=== PATIENT | male | born 1945 | race Caucasian/White ===

== ENCOUNTER 2018-07-14 09:56 | Emergency (ER) | payer OTHER, BC ==
--- OUTSIDE RECORDS SUMMARY | 2018-07-14 10:00 | XMS REPORT | Clinical Summary ---
:1945 Author Organization [facility] Address [address] [place] [address] Care Team Providers Name Role Phone Shyam Ford MD Primary Care Provider Unavailable Allergies No Known Allergies Current Medications Prescription Sig. Disp. Refills Start End Date Status Date amIODarone Active (PACERONE) 200 MG 6 tablet cetirizine Take 10 mg by 11 Active (ZyrTEC) 10 MG mouth once daily. 6 tablet VITAMIN D2 50,000 TAKE ONE CAPSULE 5 Active unit capsule BY MOUTH TWICE PER 6 WEEK. XARELTO tablet Take 20 mg by 3 Active mouth once daily. 6 tamsulosin Take 0.4 mg by 2 Active (FLOMAX) 0.4 mg mouth nightly. 6 capsule,extended release 24hr aspirin (ECOTRIN) Take 81 mg by Active 81 MG enteric mouth daily. coated tablet metoprolol Take 1 tablet (50 90 tablet 3 11/01/19 Active succinate XL mg total) by mouth 8 19 (TOPROL-XL) 50 mg daily. 24 hr tablet pen needle, Use one needle 100 each 3 Active diabetic (BD with syringe twice 8 ULTRA-FINE GAMAL daily for insulin PEN NEEDLES) 32 administration gauge x 5/32" needleIndications: Type 2 diabetes mellitus with hyperglycemia, with long-term current use of insulin insulin GLARGINE Inject 30 Units 3 mL 12/08/19 Active (BASAGLAR KWIKPEN under the skin 8 19 U-100 INSULIN) 100 nightly. unit/mL injection (pen) fenofibrate Take 1 tablet (145 90 tablet 1 Active (TRICOR) 145 MG mg total) by mouth 8 tablet daily. atorvastatin Take 1 tablet (80 90 tablet 1 Active (LIPITOR) 80 MG mg total) by mouth 8 tablet daily. traMADol (ULTRAM) Take 1 tablet (50 40 tablet 0 05/16/20 Active 50 mg tablet mg total) by mouth 8 19 every 6 (six) hours as needed for moderate pain. for pain levothyroxine Take 1 tablet (75 30 tablet 5 Active (SYNTHROID, mcg total) by 8 LEVOXYL) 75 mcg mouth every tabletIndications: morning. Primary hypothyroidism blood sugar Inject 1 strip 100 strip 5 Active diagnostic strips under the skin 3 8 (ONETOUCH ULTRA (three) times a BLUE TEST STRIP) day. strip test stripsIndications: Type 2 diabetes mellitus with hyperglycemia, with long-term current use of insulin glimepiride Take 0.5 tablets 180 tablet 1 Active (AMARYL) 4 MG (2 mg total) by 8 tablet mouth daily before breakfast. TAKE 1 TABLET BY MOUTH 2 TIMES A DAY sitaGLIPtin Take 1 tablet (100 30 tablet 5 12/03/19 Active (JANUVIA) 100 MG mg total) by mouth 8 19 tablet daily for 180 days. amlodipine-valsart Take 1 tablet by 90 tablet 1 Active an (EXFORGE) mouth daily. 8 10-160 mg per tabletIndications: Essential hypertension colchicine 0.6 mg Take 0.5 tablets 30 tablet 0 07/27/20 Active tablet (0.3 mg total) by 8 18 mouth 2 (two) times a day for 30 days. sucralfate Take 1 tablet (1 g 120 tablet 0 07/27/20 Active (CARAFATE) 1 gram total) by mouth 4 8 18 tablet (four) times a day before meals and nightly for 30 days. DEXILANT 60 mg Take 1 capsule (60 60 capsule 2 07/27/20 Active capsule mg total) by mouth 8 18 2 (two) times a day for 30 days. omega-3 acid ethyl Take 2 capsules (2 120 capsule 5 07/05/20 Active esters (LOVAZA) 1 g total) by mouth 8 19 gram capsule 2 (two) times a day. DEXILANT 60 mg 06/27/20 Discontinued capsule 6 18 BREO ELLIPTA 06/26/20 Discontinued 100-25 mcg/dose 6 18 blister with device metoprolol 11/01/19 Discontinued succinate XL 6 18 (TOPROL-XL) 25 MG 24 hr tablet albuterol (PROAIR INHALE 2 PUFFS 06/26/20 Discontinued HFA) 90 EVERY 4-6 HOURS 18 mcg/actuation NEEDED inhaler meclizine meclizine 25 mg 06/26/20 Discontinued (ANTIVERT) 25 mg tablet 18 tablet blood sugar TEST BLOOD SUGAR 3 04/23/20 Discontinued diagnostic strips TIMES PER DAY 18 (EasyCopayTOUCH ULTRA TEST) strip test strips fenofibrate Take 1 tablet (145 90 tablet 3 09/30/20 Discontinued (TRICOR) 145 MG mg total) by mouth 6 17 tablet once daily for 90 days. NASONEX 50 06/26/20 Discontinued mcg/actuation 7 18 nasal spray LANTUS SOLOSTAR Inject 20 Units 3 pen 3 11/30/19 Discontinued 100 unit/mL under the skin 7 18 injection (pen) nightly. JANUVIA 100 mg Take 1 tablet (100 30 tablet 3 07/31/20 Discontinued tablet mg total) by mouth 7 17 daily. atorvastatin Take 80 mg by 10/06/20 Discontinued (LIPITOR) 80 MG mouth daily. 17 tablet levothyroxine Take 1 tablet (50 09/30/20 Discontinued (SYNTHROID, mcg total) by 7 17 LEVOXYL) 50 mcg mouth daily. tablet fenofibrate TAKE 1 TABLET (145 3 09/30/20 Discontinued (TRICOR) 145 MG MG TOTAL) BY MOUTH 7 17 tablet ONCE DAILY FOR 90 DAYS. glimepiride TAKE 1 TABLET BY 60 tablet 5 10/06/20 Discontinued (AMARYL) 4 MG MOUTH 2 TIMES A 7 17 tablet DAY amlodipine-valsart TAKE 1 TABLET BY 90 tablet 3 06/13/20 Discontinued an (EXFORGE) MOUTH EVERY DAY 7 18 10-160 mg per tabletIndications: Essential hypertension sitaGLIPtin Take 1 tablet (100 30 tablet 3 12/06/19 Discontinued (JANUVIA) 100 MG mg total) by mouth 7 18 tablet daily. levothyroxine Take 1 tablet (50 30 tablet 5 10/06/20 Discontinued (SYNTHROID, mcg total) by 7 17 LEVOXYL) 50 mcg mouth every tabletIndications: morning. Primary hypothyroidism fenofibrate Take 1 tablet (145 90 tablet 1 03/15/20 Discontinued (TRICOR) 145 MG mg total) by mouth 7 18 tablet daily. atorvastatin Take 1 tablet (80 90 tablet 1 04/23/20 Discontinued (LIPITOR) 80 MG mg total) by mouth 7 18 tablet daily. glimepiride TAKE 1 TABLET BY 180 tablet 1 05/05/20 Discontinued (AMARYL) 4 MG MOUTH 2 TIMES A 7 18 tablet DAY levothyroxine Take 1 tablet (50 90 tablet 1 11/30/19 Discontinued (SYNTHROID, mcg total) by 7 18 LEVOXYL) 50 mcg mouth every tabletIndications: morning. Primary hypothyroidism levothyroxine Take 1 tablet (75 30 tablet 5 11/30/19 Discontinued (SYNTHROID, mcg total) by 8 18 LEVOXYL) 75 mcg mouth every tabletIndications: morning. Primary hypothyroidism levothyroxine Take 1 tablet (75 30 tablet 5 11/30/19 Discontinued (SYNTHROID, mcg total) by 8 18 LEVOXYL) 75 mcg mouth every tabletIndications: morning. Primary hypothyroidism insulin GLARGINE Inject 20 Units 6 pen 3 12/07/19 Discontinued (LANTUS SOLOSTAR) under the skin 8 18 100 unit/mL nightly. injection (pen)Indications: Type 2 diabetes mellitus with hyperglycemia, with long-term current use of insulin levothyroxine Take 1 tablet (75 30 tablet 5 11/30/19 Discontinued (SYNTHROID, mcg total) by 8 18 LEVOXYL) 75 mcg mouth every tabletIndications: morning. Primary hypothyroidism levothyroxine Take 1 tablet (75 30 tablet 5 02/25/20 Discontinued (SYNTHROID, mcg total) by 8 18 LEVOXYL) 75 mcg mouth every tabletIndications: morning. Primary hypothyroidism sitaGLIPtin Take 1 tablet (100 30 tablet 3 06/06/20 Discontinued (JANUVIA) 100 MG mg total) by mouth 8 18 tablet daily. insulin GLARGINE Inject 30 Units 3 mL 11 12/08/19 Discontinued (BASAGLAR KWIKPEN under the skin 8 18 U-100 INSULIN) 100 nightly. unit/mL injection (pen) sitaGLIPtin Take 1 tablet (100 30 tablet 5 06/26/20 Discontinued (JANUVIA) 100 MG mg total) by mouth 8 18 tablet daily. omega-3 acid ethyl Take 2 capsules (2 120 capsule 11 07/05/20 Discontinued esters (LOVAZA) 1 g total) by mouth 8 18 gram capsule 2 (two) times a day. levothyroxine Take 1.5 tablets 30 tablet 5 05/22/20 Discontinued (SYNTHROID, (75 mcg total) by 8 18 LEVOXYL) 50 mcg mouth every tabletIndications: morning. Primary hypothyroidism traMADol (ULTRAM) Take 1 tablet (50 40 tablet 0 05/16/20 Discontinued 50 mg tablet mg total) by mouth 8 18 every 6 (six) hours as needed for moderate pain for up to 30 days. ONETOUCH ULTRA USE 1 TEST STRIP 3 100 strip 5 05/24/20 Discontinued BLUE TEST STRIP TIMES DAILY. 8 18 strip test strips glimepiride Take 1 tablet (4 180 tablet 1 05/29/20 Discontinued (AMARYL) 4 MG mg total) by mouth 8 18 tablet daily before breakfast. TAKE 1 TABLET BY MOUTH 2 TIMES A DAY Active Problems Problem Noted Date PAF (paroxysmal atrial fibrillation) 06/26/2018 Memory difficulties 05/24/2018 BPH with urinary obstruction 02/22/2018 Acute pain of left knee 11/14/2017 Acquired hammer toe of right foot 11/14/2017 Left hip pain 12/06/2016 Coronary artery disease involving [place] heart without angina pectoris 2016 Atrial fibrillation 11/02/2016 SOB (shortness of breath) 11/02/2016 Hypertension, essential 09/29/2016 Type 2 diabetes mellitus with hyperglycemia 06/30/2016 Acquired hypothyroidism 06/30/2016 Encounters Date Type Specialty Care Team Description 07/05/2018 Refill Sports Randolph Wu MA 06/27/2018 Procedure Pass Cardiovascular 06/26/2018 - Hospital Encounter Cardiovascular DillonJa PAF (paroxysmal 06/30/2018 MD John atrial fibrillation) 06/26/2018 Anesthesia Event Procedural Cardiology Claude Goncalves 06/26/2018 Procedure Pass Procedural Cardiology 06/26/2018 Surgery Procedural Cardiology Ja Carranza Ep complete ep study MD John w ablation pulmonary vein [56953 (CPT)] 06/13/2018 Refill Sports Medicine Braunreiter, Essential Shyam Dubose MD hypertension 06/06/2018 Refill Sports Shyam Osborn MD 05/29/2018 Orders Only Sports Shyam Osborn MD 05/24/2018 Office Visit Sports Medicine [place], Type 2 diabetes mellitus with hyperglycemia, with long-term current use of insulin (Primary Dx); Shyam Dubose MD Hypertension, essential; Memory difficulties 05/21/2018 Refill Sports Medicine Arias Ford MD hypothyroidism 05/16/2018 Refill Sports Shyam Osborn MD 05/05/2018 Refill Sports Shyam Osborn MD 04/23/2018 Refill Sports Shyam Osborn MD 03/15/2018 Orders Only Sports Medicine [place], Left hip pain Shyam Dubose MD (Primary Dx) 03/15/2018 Telephone Sports Shyam Osborn MD 02/28/2018 Telephone Sports Medicine Albertina Gallo MA 02/24/2018 Orders Only Sports Medicine [place] Primary Shyam Dubose MD hypothyroidism 02/23/2018 Refill Sports Shyam Osborn MD 02/22/2018 Office Visit Sports Medicine [place], Hypertension, essential (Primary Dx); Shyam Dubose MD Type 2 diabetes mellitus with hyperglycemia, with long- term current use of insulin; BPH with urinary obstruction; Acquired hypothyroidism 12/08/2017 Refill Sports Randolph Wu MA 12/07/2017 Orders Only Sports Shyam Osborn MD 12/06/2017 Refill Sports Medicine Shyam Ford MD 11/30/2017 Office Visit Sports Medicine [place], Hypertension, essential (Primary Dx); Shyam Dubose MD Type 2 diabetes mellitus with hyperglycemia, with long- term current use of insulin; Acute pain of left knee; Hypercholesterolemia; Primary hypothyroidism 11/16/2017 Telephone Sports Medicine Albertina Gallo MA 11/14/2017 Office Visit Sports Medicine [place], Acute pain of left knee (Primary Dx); Shyam Dubose MD Acquired hammer toe of right foot; Type 2 diabetes mellitus with hyperglycemia, with long-term current use of insulin; Hypertension, essential; Acquired hypothyroidism; Coronary artery disease involving [place] coronary artery of [place] heart without angina pectoris 11/01/2017 Office Visit Cardiology Rojas Ramirez Atrial fibrillation, unspecified type (Primary Dx); MD Astrid Hypertension, essential 10/06/2017 Refill Sports Medicine Arias Sparks MA hypothyroidism 09/30/2017 Refill Sports Medicine Arias Ford MD hypothyroidism 07/31/2017 Refill Sports Medicine Shyam Ford MD after 07/13/2017 Immunizations Name Dates Previously Given Next Due FLUZONE HIGH-DOSE PF 05/26/2018 Pneumococcal Conjugate 13-Valent 05/10/2017 Family History Medical History Relation Name Comments Cancer Father Cancer Mother Relation Name Status Comments Brother Father Mother Social History Tobacco Use Types Packs/Day Years Used Date Never Smoker Smokeless Tobacco: Never Used Alcohol Use Drinks/Week oz/Week Comments No Sex Assigned at Date Recorded Not on file Last Filed Vital Signs Vital Sign Reading Time Taken Blood Pressure 159/74 06/30/2018 7:09 AM CDT Pulse 58 06/30/2018 8:10 AM CDT Temperature 36.5 C (97.7 F) 06/30/2018 7:09 AM CDT Respiratory Rate 18 06/30/2018 7:09 AM CDT Oxygen Saturation 94% 06/30/2018 7:09 AM CDT Inhaled Oxygen Concentration - - Weight 119 kg (262 lb 14.4 oz) 06/30/2018 5:06 AM CDT Height 170.2 cm (5' 7") 06/26/2018 11:45 PM CDT Body Mass Index 41.18 06/30/2018 5:06 AM CDT Plan of Treatment Date Type Specialty Care Team Description 09/06/2018 Office Visit [place] [address] [place] [address] [phone] Health Maintenance Due Date Last Done Comments DIABETIC FOOT EXAM 1957 DIABETIC RETINAL EYE EXAM 1957 URINE MICROALBUMIN 1957 COLON CANCER SCREENING 1997 SHINGRIX VACCINE (#1) 1997 ZOSTER VACCINE 2007 PNEUMOCOCCAL POLYSACCHARIDE VACCINE AGE 65 AND OVER 2012 PNEUMOCOCCAL-13 Completed 05/10/2017 INFLUENZA VACCINE Completed 05/26/2018 Implants Implanted Type Area Chronic Disease Manager Device Expiration Model / Identifier Date Serial / Lot System Reveal Linq W/Monitors - [id number] Cardiac N/A: [employer] 2018 LINQSYS / Implanted: 06/26/2018 (Quantity not on file) Pacemakers and N/A CARDIAC RHYTHM / Related DISEASE MGMT [id number] Products Procedures Procedure Name Priority Date/Time Associated Comments Diagnosis POC GLUCOSE Routine 06/30/2018 7:09 Results for this AM CDT procedure are in the results section. POC GLUCOSE Routine 06/29/2018 8:43 Results for this PM CDT procedure are in the results section. POC GLUCOSE Routine 06/29/2018 4:22 Results for this PM CDT procedure are in the results section. POC GLUCOSE Routine 06/29/2018 12:06 Results for this PM CDT procedure are in the results section. POC GLUCOSE Routine 06/29/2018 7:21 Results for this AM CDT procedure are in the results section. POC GLUCOSE Routine 06/28/2018 9:04 Results for this PM CDT procedure are in the results section. POC GLUCOSE Routine 06/28/2018 6:21 Results for this PM CDT procedure are in the results section. MRI BRAIN WO CONTRAST Routine 06/28/2018 4:23 Results for this PM CDT procedure are in the results section. XR CHEST 1 VW Routine 06/28/2018 12:17 Results for this PORTABLE PM CDT procedure are in the results section. POC GLUCOSE Routine 06/28/2018 11:38 Results for this AM CDT procedure are in the results section. POC GLUCOSE Routine 06/28/2018 7:11 Results for this AM CDT procedure are in the results section. POC GLUCOSE Routine 06/27/2018 9:48 Results for this PM CDT procedure are in the results section. POC GLUCOSE Routine 06/27/2018 11:20 Results for this AM CDT procedure are in the results section. POC GLUCOSE Routine 06/27/2018 9:32 Results for this AM CDT procedure are in the results section. ECG 12-LEAD Routine 06/27/2018 9:29 Results for this AM CDT procedure are in the results section. POC GLUCOSE Routine 06/27/2018 7:30 Results for this AM CDT procedure are in the results section. PROTHROMBIN TIME WITH Routine 06/27/2018 5:15 Results for this INR AM CDT procedure are in the results section. HC COMPLETE BLD COUNT Routine 06/27/2018 5:15 Results for this W/AUTO DIFF AM CDT procedure are in the results section. ZZESTIMATED GFR Routine 06/27/2018 4:00 Results for this AM CDT procedure are in the results section. BASIC METABOLIC PANEL Routine 06/27/2018 4:00 Results for this AM CDT procedure are in the results section. POC GLUCOSE Routine 06/26/2018 9:38 Results for this PM CDT procedure are in the results section. EP COMPLETE EP STUDY Routine 06/26/2018 5:51 PAF (paroxysmal Results for this W ABLATION VT PM CDT atrial procedure are in fibrillation) the results section. EP LOOP RECORDER Routine 06/26/2018 5:51 PAF (paroxysmal Results for this INSERTION PM CDT atrial procedure are in fibrillation) the results section. EP LOOP RECORDER Routine 06/26/2018 5:51 PAF (paroxysmal Results for this REMOVAL PM CDT atrial procedure are in fibrillation) the results section. ARTERIAL LINE Routine 06/26/2018 12:53 PM CDT Procedure Note - Wei Macario MD - 06/26/2018 12:53 PM CDT Arterial line Performed by: WEI MACARIO Authorized by: WEI MACARIO Patient Location: OR Staff: Anesthesiologist: WEI MACARIO Performed by: Anesthesiologist Pre-procedure: patient identified, IV checked, site and side verified, risks and benefits discussed, procedure verified, surgical consent complete, patient position confirmed, monitors and equipment checked and pre-op evaluation complete MSBT: antiseptic used, all elements of maximal sterile barrier technique followed, hand hygiene performed, cap/gown used by other personnel and solutions labeled Indications: Indications: hemodynamic monitoring Anesthesia: Anesthesia: General Procedure Details: Arterial Line placement: Placed post induction Line placement site: Radial Line placement side: Left Arterial line gauge: 20 G Number of attempts: 1 Ultrasound guidance used: No Post-procedure: Post-procedure: Sterile dressing applied Post procedure circulation, sensation, movement: Normal Patient tolerance: Patient tolerated the procedure well with no immediate complications MT AN ELECTIVE ENDOTRACHEAL AIRWAY Routine 06/26/2018 12:51 PM CDT Procedure Note - Wei Macario MD - 06/26/2018 12:51 PM CDT Airway Performed by: WEI MACARIO Authorized by: WEI MACARIO Location: OR Urgency: Elective Difficult Airway: No Anesthesiologist: WEI MACARIO Resident/SALES SPECIALIST/AA: OMAIRA MCCOLLUM Performed by: anesthesiologist Preoxygenated with 100% O2: Yes C-spine Precautions Maintained Throughout: No Mask Ventilation: Assisted mask Final Airway Type: Endotracheal airway Final Endotracheal Airway: ETT Cuffed: Yes Technique Used: Direct laryngoscopy Devices/Methods Used in Placement: Intubating stylet Insertion Site: Oral Blade Type: [place] Laryngoscope Blade/Videolaryngoscope Blade Size: 2 ETT Size (mm): 8.5 Cuff at minimum occlusion pressure: Yes Measured from: Lips ETT to Lips (cm): 23 Placement Verified by: CO2 detection and direct visualization Laryngoscopic view: Grade I - full view of glottis Number of Attempts at Approach: 1 Smooth and atraumatic, no injury to lips teeth, oropharynx or vocal cords ZZESTIMATED GFR STAT 06/26/2018 8:30 Results for this AM CDT procedure are in the results section. PROTHROMBIN TIME WITH STAT 06/26/2018 8:30 Results for this INR AM CDT procedure are in the results section. BASIC METABOLIC PANEL STAT 06/26/2018 8:30 Results for this AM CDT procedure are in the results section. HC COMPLETE BLD COUNT STAT 06/26/2018 8:30 Results for this W/AUTO DIFF AM CDT procedure are in the results section. TYPE AND SCREEN STAT 06/26/2018 8:30 Results for this AM CDT procedure are in the results section. ECG PRE/POST OP Routine 06/26/2018 8:24 Results for this AM CDT procedure are in the results section. HEMOGLOBIN A1C Routine 05/26/2018 12:00 Type 2 diabetes Results for this AM CDT mellitus with procedure are in hyperglycemia, with the results long-term current use section. of insulin THYROID STIMULATING Routine 02/23/2018 8:57 Acquired Results for this HORMONE AM CDT hypothyroidism procedure are in the results section. T4 Routine 02/23/2018 8:57 Acquired Results for this AM CDT hypothyroidism procedure are in the results section. HEMOGLOBIN A1C Routine 02/23/2018 8:57 Type 2 diabetes Results for this AM CDT mellitus with procedure are in hyperglycemia, with the results long-term current use section. of insulin LIPID PANEL Routine 02/23/2018 8:57 Hypertension, Results for this AM CDT essential procedure are in the results section. COMPREHENSIVE Routine 02/23/2018 8:57 Hypertension, Results for this METABOLIC PANEL AM CDT essential procedure are in Type 2 diabetes the results mellitus with section. hyperglycemia, with long-term current use of insulin CBC HEMOGRAM Routine 02/23/2018 8:57 Hypertension, Results for this AM CDT essential procedure are in Type 2 diabetes the results mellitus with section. hyperglycemia, with long-term current use of insulin THYROID STIMULATING Routine 11/21/2017 11:34 Acquired Results for this HORMONE AM [employer] WORK[employer] hypothyroidism procedure are in the results section. HEMOGLOBIN A1C Routine 11/21/2017 11:34 Type 2 diabetes Results for this AM [employer] mellitus with procedure are in hyperglycemia, with the results long-term current use section. of insulin LIPID PANEL Routine 11/21/2017 11:34 Hypertension, Results for this AM [employer] essential procedure are in Coronary artery the results disease involving section. [place] coronary artery of [place] heart without angina pectoris COMPREHENSIVE Routine 11/21/2017 11:34 Hypertension, Results for this METABOLIC PANEL AM [employer] WORK[employer] essential procedure are in Coronary artery the results disease involving section. [place] coronary artery of [place] heart without angina pectoris CBC HEMOGRAM Routine 11/21/2017 11:34 Hypertension, Results for this AM [employer] WORK[employer] essential procedure are in Coronary artery the results disease involving section. [place] coronary artery of [place] heart without angina pectoris MT ARTHROCENTESIS Routine 11/14/2017 11:51 Acute pain of left Results for this ASPIR&/INJ MAJOR AM [employer] WORK[employer] knee procedure are in JT/BURSA W/O US the results section. XR KNEE 4+ VW LEFT Routine 11/14/2017 11:13 Acute pain of left Results for this AM [employer] WORK[employer] knee procedure are in the results section. after 07/13/2017 Results POC glucose (06/30/2018 7:09 AM)Only the most recent of14 resultswithin the time period is included. POC glucose 113 (H) 65 - 99 mg/dL [facility] DEPARTMENT OF PATHOLOGY AND Comment: [facility] Notified RN Meter ID: [id number] Training Coordinator: Kvng Munoz Performing Organization Address City/State/Zipcode Phone Number [facility] DEPARTMENT OF PATHOLOGY AND [address] [place] [address] [facility] MRI Brain Wo Contrast (06/28/2018 4:23 PM) Narrative Performed At EXAMINATION: MRI BRAIN WO CONTRAST RADIANT CLINICAL HISTORY: NEURO DEFICITACUTESINGLEPROGRESSING, STROKE COMPARISON:None TECHNIQUE: Multiplanar and multisequence MRI imaging of the brain was obtained without contrast. FINDINGS: There is no evidence of acute infarct, intracranial hemorrhage or mass, hydrocephalus or midline shift. The sella is enlarged and partially empty. There is mild nonspecific enlargement of the ventricles and extra axial space greater in the anterior region. There are mild nonspecific white matter changes. There is partial opacification of the left mastoid air cells. There is nonspecific prominent intraorbital fat with outward bulging of the globes. Recommend correlation for thyroid eye disease. There is slight prominent CSF signal intensity in the optic nerve sheaths surrounding the optic nerves with slight flattening at the level of the insertions of the optic nerves into globes. Recommend clinical correlation for papilledema versus variant of normal. IMPRESSION: No acute infarct in the brain or extra axial region. Mild nonspecific left mastoiditis. Nonspecific prominent intraorbital fat. Recommend correlation for thyroid eye disease among other etiologies. There is slight prominent CSF signal intensity in the optic nerve sheaths surrounding the op tic nerves with slight flattening in the region of the posterior globe at the insertions of the optic nerves. Recommend correlation for papilledema versus variant of normal. [id number] Procedure Note Interface, Radiology Results Incoming - 06/29/2018 7:46 AM CDT EXAMINATION: MRI BRAIN WO CONTRAST CLINICAL HISTORY: NEURO DEFICIT ACUTE SINGLE PROGRESSING, STROKE COMPARISON: None TECHNIQUE: Multiplanar and multisequence MRI imaging of the brain was obtained without contrast. FINDINGS: There is no evidence of acute infarct, intracranial hemorrhage or mass, hydrocephalus or midline shift. The sella is enlarged and partially empty. There is mild nonspecific enlargement of the ventricles and extra axial space greater in the anterior region. There are mild nonspecific white matter changes. There is partial opacification of the left mastoid air cells. There is nonspecific prominent intraorbital fat with outward bulging of the globes. Recommend correlation for thyroid eye disease. There is slight prominent CSF signal intensity in the optic nerve sheaths surrounding the optic nerves with slight flattening at the level of the insertions of the optic nerves into globes. Recommend clinical correlation for papilledema versus variant of normal. IMPRESSION: No acute infarct in the brain or extra axial region. Mild nonspecific left mastoiditis. Nonspecific prominent intraorbital fat. Recommend correlation for thyroid eye disease among other etiologies. There is slight prominent CSF signal intensity in the optic nerve sheaths surrounding the optic nerves with slight flattening in the region of the posterior globe at the insertions of the optic nerves. Recommend correlation for papilledema versus variant of normal. [facility]-[id number] Performing Organization Address [facility] Phone Number [facility] [address] [place] [address] XR Chest 1 Vw Portable (06/28/2018 12:17 PM) Narrative Performed At EXAMINATION: XR CHEST 1 VW PORTABLE [facility] INDICATION: possible pacemaker in chest COMPARISON: 03/17/2015 IMPRESSION: Cardiac device overlying the chest wall. Heart is mildly enlarged. Arteriosclerosis aortic arch. No focal infiltrate, effusion, or pneumothorax. [facility]-[id number] Procedure Note Hm Interface, Radiology Results Incoming - 06/28/2018 1:32 PM CDT EXAMINATION: XR CHEST 1 VW PORTABLE INDICATION: possible pacemaker in chest COMPARISON: 03/17/2015 IMPRESSION: Cardiac device overlying the chest wall. Heart is mildly enlarged. Arteriosclerosis aortic arch. No focal infiltrate, effusion, or pneumothorax. [facility]-[id number] Performing Organization Address [facility] Phone Number [facility] [address] [place] [address] ECG 12 lead (06/27/2018 9:29 AM) Ventricular rate 62 [facility] Atrial rate 62 [facility] MT interval 172 [facility] QRSD interval 90 [facility] QT interval 442 [facility] QTC interval 448 [facility] MUSE P axis 1 49 [facility] QRS axis 1 6 [facility] T wave axis 46 [facility] MUSE EKG impression Normal sinus rhythm-Normal ECG-In automated [facility] MUSE comparison with ECG of 26-JUN-2018 08:24,-No significant change was found- Performing Organization Address City/[facility]/Zipcode Phone Number [facility] MUSE [address] [place] [address] Prothrombin time with INR (06/27/2018 5:15 AM)Only the most recent of2 resultswithin the time period is included. Prothrombin time 16.0 (H) 12.0 - 15.0 sec [facility] DEPARTMENT OF PATHOLOGY AND GENOMIC MEDICINE INR 1.3 [facility] DEPARTMENT OF Comment: PATHOLOGY AND GENOMIC The International Normalized Ratio (INR) is a therapeutic MEDICINE monitoring tool for patients who are stable on oral anticoagulant therapy. An INR of 2.0-3.0 is suggested for deep vein thrombosis/pulmonary embolism. Specimen Blood Performing Organization Address City/[facility] Cent[facility] Phone Number [facility] PATHOLOGY AND [address] [place] [address] [facility] CBC with platelet and differential (06/27/2018 5:15 AM)Only the most recent of2 resultswithin the time period is included. WBC 7.36 4.50 - 11.00 k/uL [facility] DEPARTMENT OF PATHOLOGY AND GENOMIC MEDICINE RBC 3.50 (L) 4.40 - 6.00 m/uL [facility] DEPARTMENT OF PATHOLOGY AND GENOMIC MEDICINE HGB 10.1 (L) 14.0 - 18.0 g/dL [facility] DEPARTMENT OF PATHOLOGY AND GENOMIC MEDICINE HCT 31.7 (L) 41.0 - 51.0 % [facility] DEPARTMENT OF PATHOLOGY AND GENOMIC MEDICINE MCV 90.6 82.0 - 100.0 fL [facility] DEPARTMENT OF PATHOLOGY AND GENOMIC MEDICINE MCH 28.9 27.0 - 34.0 pg [facility] DEPARTMENT OF PATHOLOGY AND GENOMIC MEDICINE MCHC 31.9 31.0 - 37.0 g/dL [facility] DEPARTMENT OF PATHOLOGY AND GENOMIC MEDICINE RDW - SD 50.2 37.0 - 55.0 fL [facility] DEPARTMENT OF PATHOLOGY AND GENOMIC MEDICINE MPV 10.4 8.8 - 13.2 fL [facility] DEPARTMENT OF PATHOLOGY AND GENOMIC MEDICINE Platelet count 146 (L) 150 - 400 k/uL [facility] DEPARTMENT OF PATHOLOGY AND GENOMIC MEDICINE Nucleated RBC 0.00 /100 WBC [facility] DEPARTMENT OF PATHOLOGY AND GENOMIC MEDICINE Neutrophils 85.6 (H) 39.0 - 69.0 % [facility] DEPARTMENT OF PATHOLOGY AND GENOMIC MEDICINE Lymphocytes 9.4 (L) 25.0 - 45.0 % [facility] DEPARTMENT OF PATHOLOGY AND GENOMIC MEDICINE Monocytes 3.5 0.0 - 10.0 % [facility] DEPARTMENT OF PATHOLOGY AND GENOMIC MEDICINE Eosinophils 0.8 0.0 - 5.0 % [facility] DEPARTMENT OF PATHOLOGY AND GENOMIC MEDICINE Basophils 0.3 0.0 - 1.0 % [facility] DEPARTMENT OF PATHOLOGY AND GENOMIC MEDICINE Immature granulocytes 0.4Comment: 0.0 - 1.0 % [facility] DEPARTMENT OF "Immature PATHOLOGY AND GENOMIC granulocytes" MEDICINE (promyelocytes, myelocytes, metamyelocytes) Specimen Blood Performing Organization Address City/[facility] Cent[facility]ode Phone Number [facility] DEPARTMENT OF PATHOLOGY AND [address] [place] [address] [employer] MEDICINE Estimated GFR (06/27/2018 4:00 AM)Only the most recent of2 resultswithin the time period is included. GFR Non Af Amer 54 (A) mL/min/1.73 m2 [facility] DEPARTMENT OF PATHOLOGY AND GENOMIC MEDICINE GFR Af Amer 66 mL/min/1.73 m2 [facility] DEPARTMENT OF Comment: PATHOLOGY AND GENOMIC Chronic kidney disease: <60 mL/min/1.73m2 MEDICINE Kidney failure: <15 mL/min/1.73m2 The estimated GFR is calculated from the IDMS-traceable Modification of Diet in Renal Disease Equation. The accuracy of the calculation is poor when the creatinine is normal. Calculated values >90 mL/min/1.73m2 are not reported. This equation has not been validated in children (<18 years), women, the elderly (>70 years), or ethnic groups other than Caucasians and Americans. Specimen Plasma specimen Performing Organization Address City/State/[facility] Cent[facility]ode Phone Number [facility] PATHOLOGY AND [address] [place] [address] [employer] Basic metabolic panel (06/27/2018 4:00 AM)Only the most recent of2 resultswithin the time period is included. Sodium 143 135 - 148 mEq/L [facility] DEPARTMENT OF PATHOLOGY AND GENOMIC MEDICINE Potassium 3.9 3.5 - 5.0 mEq/L [facility] DEPARTMENT OF PATHOLOGY AND GENOMIC MEDICINE Chloride 103 98 - 112 mEq/L [facility] DEPARTMENT OF PATHOLOGY AND GENOMIC MEDICINE CO2 28 24 - 31 mEq/L [facility] DEPARTMENT OF PATHOLOGY AND GENOMIC MEDICINE Anion gap 12@ANIO 7 - 15 mEq/L [facility] DEPARTMENT OF PATHOLOGY AND GENOMIC MEDICINE BUN 16 8 - 23 mg/dL [facility] DEPARTMENT OF PATHOLOGY AND GENOMIC MEDICINE Creatinine 1.3 (H) 0.70 - 1.20 mg/dL [facility] DEPARTMENT OF PATHOLOGY AND GENOMIC MEDICINE Glucose 103 (H) 65 - 99 mg/dL [facility] DEPARTMENT OF PATHOLOGY AND GENOMIC MEDICINE Calcium 8.2 (L) 8.8 - 10.2 mg/dL [facility] DEPARTMENT OF PATHOLOGY AND GENOMIC MEDICINE Specimen Plasma specimen Performing Organization Address City/State/Zipcode Phone Number [facility] DEPARTMENT OF PATHOLOGY AND [address] [place] [address] [facility] Cv electrophysiology procedure (06/26/2018 5:51 PM) Narrative Performed At [employer] CO[employer]: SUDHA Carranza. COMPLICATIONS: None. ESTIMATED BLOOD LOSS: 10 mL. SPECIMEN REMOVED: Implantable loop recorder. ANESTHESIA: General. PROCEDURES PERFORMED: 1.Atrial fibrillation ablation with pulmonary vein isolation. 2.Extrapulmonary vein ablation with posterior wall isolation. 3.Atrial flutter ablation separate from primary mechanism. 4.PAC ablation separate from primary mechanism. 5.3D mapping. 6.Intracardiac echocardiogram. 7.Pharmacologic drug infusion. 8.Implantable loop recorder explantation. 9.Implantable loop recorder implantation. PREOPERATIVE DIAGNOSES: 1.Recurrent refractory drug intolerant atrial fibrillation. 2.History of persistent atrial fibrillation status post pulmonary vein ablation x3. 3.Morbid obesity. 4.Diabetes. 5.Hypertension. POSTOPERATIVE DIAGNOSES: 1.Recurrent refractory drug intolerant atrial fibrillation. 2.History of persistent atrial fibrillation status post pulmonary vein ablation x3. 3.Morbid obesity. 4.Diabetes. 5.Hypertension. HISTORY OF PRESENT ILLNESS: The patient is a 73-year-old gentleman with the above medical history, who is referred for an EP study and ablation for recurrent drug intolerant atrial fibrillation.The patient has had a previous history of paroxysmal/persistent atrial fibrillation status post pulmonary vein ablation x3 with the last ablation done in 2013.The patient has been on long-term amiodarone and concerns about possible amiodarone-related toxicity.Hence, he is referred for repeat ablation.The patient also has an implantable loop recorder which has reached end of service.Hence, he will have an explantation of the device and then replacement with a new device. PROCEDURE IN DETAIL: The patient was brought to the procedure room in a fasting state. Informed consent was obtained.The patient was prepped and draped in the usual sterile fashion.General anesthesia was used for the procedure. Ultrasound-guided vascular access was obtained in the right femoral vein and left femoral vein. Catheter was advanced including decapolar catheter placed in the coronary sinus. Intracardiac echocardiogram, which was used to assist with transseptal puncture, monitor catheter position, monitor pericardial effusion, recreate 3D geometry, and exclude left atrial appendage clot.Transseptal puncture was performed after heparin bolus was given.ACTs were maintained between 350 through 400 seconds throughout the procedure.Baseline voltage map was done demonstrating isolation of the left superior, left inferior, right superior pulmonary vein.Reconnection of the right inferior pulmonary vein was noted along the posterior aspect as well as a small gap in the roofline near the right pulmonary veins.Hence, a SmartTouch ablation catheter was advanced via deflectable sheath and ablation was initially targeted at the roofline to close the roofline.We then did additional ablation along the LA floor and around the posterior aspect of the right inferior pulmonary vein as well as along the anterior aspect.We had difficult time achieving isolation of the posterior wall and after multiple remapping, it was noted that the inferior margin of the right inferior pulmonary vein extended much further inferiorly and we created much further inferior lesions and were finally able to isolate the right inferior pulmonary vein as well as the posterior wall.Dissociated firing was noted.Entrance and exit block was present.Isoproterenol was then started in incremental doses.Programmed stimulation was performed with up to double atrial extrastimuli down to refractory with no induced arrhythmias. Recurrent PAC was noted which was mapped and localized to the right mid xuan terminalis. This area was successfully targeted.We also reassessed our CTI line and although for the most part, it looked like there was block present, it looked like the proximal end of the line had early activation relative to the annular aspect as additional ablation was done near this aspect.Block was bidirectional in nature confirmed with differential site mapping.At this point, the procedure was completed.No evidence of pericardial effusion at the end of the case.Mean LA pressure was 18 mmHg. We then prepped the chest wall in the usual sterile fashion.A 1% lidocaine was administered to the left upper chest.A 3-cm incision was made and the Reveal XT implantable loop recorder was explanted.Pocket was flushed, adequate hemostasis was achieved.We then created a separate plane via which the implantable loop recorder LINQ was then deployed and then the pocket was closed using 4-0 Vicryl in 2 layers followed by Dermabond with Prineo.The patient tolerated the procedure well without hemodynamic, neurologic or respiratory sequelae. FINDINGS: The patient had a successful reisolation of the right inferior pulmonary vein. Extrapulmonary vein ablation was performed along the LA floor and along the LA roof to achieve isolation of the posterior wall confirmed with pacing and exit block and persistent on high-dose isoproterenol.No other induced arrhythmias were noted with programmed stimulation.However, with isoproterenol up to 10 mcg per minute, we were able to provoke reproducible atrial bigeminy which was mapped to the right atrium and targeted along the mid xuan terminalis. Prior to ablation of this area, pacing was done to show that there was no phrenic nerve capture.We then assessed our CTI line and although block appeared to be present, the medial aspect of the CTI line had an earlier activation relative to the annular aspect, hence additional ablation was done along that area to ensure that there was CTI block.Block was then bidirectional in nature and confirmed with differential site mapping.Catheter ablation was performed using rosales up to 40 dunaway with contact force between 7 to 35 grams.Power was limited to 6 to 8 seconds along the posterior wall with close esophageal temperature monitoring and the remainder of the atrium administered up to 10 to 12 seconds. CONCLUSION: Baseline isolation of the left superior, left inferior, and right superior pulmonary vein.Reisolation of the right inferior pulmonary vein was achieved with much more inferior lesions.Extrapulmonary vein ablation was performed along the LA floor and along the LA roof with posterior wall isolation achieved confirmed with pacing and entrance block.Pacing with entrance and exit block present. A right-sided PAC noted from the mid xuan terminalison high-dose isoproterenol which was ablated Possible partial reconnection of the CTI along the proximal aspect which was ablated and block was achieved bidirectional in nature. Implantable loop recorder Reveal XT was explanted and replaced with a new implantable loop recorder LINQ for long-term surveillance in atrial arrhythmias. Performing Organization Address City/State/Zipcode Phone Number [facility] [address] [place] [address] Type and screen (06/26/2018 8:30 AM) ABO grouping A [facility] DEPARTMENT OF PATHOLOGY AND GENOMIC MEDICINE Rh type POS [facility] DEPARTMENT OF PATHOLOGY AND GENOMIC MEDICINE Antibody screen (gel) NEG [facility] DEPARTMENT OF PATHOLOGY AND GENOMIC MEDICINE Specimen Blood Performing Organization Address City/[facility] Phone Number [facility] DEPARTMENT OF PATHOLOGY AND [address] [place] [address] [facility] MEDICINE ECG Pre/Post Op (06/26/2018 8:24 AM) Ventricular rate 63 [facility] MUSE Atrial rate 63 [facility] MT interval 178 [facility] MUSE QRSD interval 92 [facility] MUSE QT interval 452 [facility] MUSE QTC interval 462 [facility] MUSE P axis 1 49 [facility] MUSE QRS axis 1 9 [facility] MUSE T wave axis 45 [facility] MUSE EKG impression Normal sinus rhythm-Otherwise normal ECG-In automated comparison with ECG of 19-MAR-2014 08:54,-Nonspecific T wave abnormality no longer evident in Inferior leads-Nonspecific T wave abnormality no longer evident in Anterolateral leads-Electronically [facility] MUSE Signed By Sumaya Delaney MD ([id number]) on 06/26/2018 11:50:51 PM Performing Organization Address [facility] Phone Number [facility] MUSE [address] [place] [address] Hemoglobin A1c (05/26/2018)Only the most recent of3 resultswithin the time period is included. Hemoglobin A1C 6.1 (H) <5.7 % of total [facility] Comment: b [place] For someone without known diabetes, a hemoglobin A1c value between 5.7% and 6.4% is consistent with prediabetes and should be confirmed with a follow-up test. For someone with known diabetes, a value <7% indicates that their diabetes is well controlled. A1c targets should be individualized based on duration of diabetes, age, comorbid conditions, and other considerations. This assay result is consistent with an increased risk of diabetes. Currently, no consensus exists regarding use of hemoglobin A1c for diagnosis of diabetes for children. Specimen Blood Narrative Performed At FASTING:YES [facility] FASTING: YES Other Results Text Performing Organization Information: Site ID: [id number] Name: [facility] Address: [address] [place] [phone] Director: Jackeline Golden Performing Organization Address City/[facility]/Zipcode Phone Number [place] [address] CBC hemogram (02/23/2018 8:57 AM)Only the most recent of2 resultswithin the time period is included. WBC 4.0 3.8 - 10.8 Thousand/uL [facility] [place] RBC 4.10 (L) 4.20 - 5.80 Million/uL [facility] [place] HGB 12.0 (L) 13.2 - 17.1 g/dL [facility] [place] HCT 35.5 (L) 38.5 - 50.0 % [facility] [place] MCV 86.6 80.0 - 100.0 fL [employer] [place] MCH 29.3 27.0 - 33.0 pg [employer] [place] MCHC 33.8 32.0 - 36.0 g/dL [facility] [place] RDW 14.6 11.0 - 15.0 % [facility] [place] Platelet count 178 140 - 400 Thousand/uL [employer] [place] MPV 10.1 7.5 - 12.5 fL [facility] [place] Specimen Blood Narrative Performed At FASTING:YES [facility] FASTING: YES Other Results Text Performing Organization Information: Site ID: [facility] Name: [facility] Address: [address] [place] [phone] Director: Jackeline Golden Performing Organization Address [facility] Phone Number [place] [address] Thyroid stimulating hormone (02/23/2018 8:57 AM)Only the most recent of2 resultswithin the time period is included. TSH 5.33 (H) 0.40 - 4.50 mIU/L [facility] [place] Specimen Blood Narrative Performed At FASTING:YES [facility] FASTING: YES Other Results Text Performing Organization Information: Site ID: [facility] Name: [facility] Address: [address] [place] [phone] Director: Jackeline Golden Performing Organization Address [facility] Phone [place] [address] T4 (02/23/2018 8:57 AM) T4 12.6 (H) 4.5 - 12.0 mcg/dL [facility] Specimen Blood Narrative Performed At FASTING:YES [facility] FASTING: YES Other Results Text Performing Organization Information: Site ID: [id number] Name: [facility] Address: [address] [place] [phone] Director: Jackeline Golden Performing Organization Address City/State/Zipcode Phone Number SHERYL SIDHU [place] [address] [place] [phone] Lipid panel (02/23/2018 8:57 AM)Only the most recent of2 resultswithin the time period is included. Cholesterol, total 179 <200 mg/dL [facility] HDL cholesterol 21 (L) >40 mg/dL [facility] Triglycerides 290 (H) <150 mg/dL [facility] LDL cholesterol 117 (H) mg/dL (calc) [facility] calculated Comment: [place] Reference range: <100 Desirable range <100 mg/dL for primary prevention; <70 mg/dL for patients with CHD or diabetic patients with > or=2 CHD risk factors. LDL-C is now calculated using the René calculation, which is a validated novel method providing better accuracy than the Friedewald equation in the estimation of LDL-C. Mirza SS et al. JIE. 2013;310(19): 1840-6796 (http://education.[employer]/faq/LMC731) Cholesterol/HDL ratio 8.5 (H) <5.0 (calc) [facility] Non-HDL cholesterol 158 (H) <130 mg/dL [facility] Comment: (calc) [place] For patients with diabetes plus 1 major ASCVD risk factor, treating to a non-HDL-C goal of <100 mg/dL (LDL-C of <70 mg/dL) is considered a therapeutic option. Specimen Blood Narrative Performed At FASTING:YES [facility] FASTING: YES Other Results Text Performing Organization Information: Site ID: [id number] Name: [facility] Address: [address] [place] [phone] Director: Jackeline Golden Performing Organization Address City/State/Zipcode Phone Number SHERYL SIDHU [place] [address] [place] [phone] Comprehensive metabolic panel (02/23/2018 8:57 AM)Only the most recent of2 resultswithin the time period is included. Glucose 74 65 - 99 mg/dL [facility] Comment: [place] Fasting reference interval BUN, whole blood 18 7 - 25 mg/dL [facility] [place] Creatinine 1.39 (H) 0.70 - 1.18 [facility] Comment: mg/dL [place] For patients >49 years of age, the reference limit for Creatinine is approximately 13% higher for people identified as -Tunisian. EGFR Non-Afr. Tunisian 51 (L) > OR=60 [facility] mL/min/1.73m2 [place] EGFR 59 (L) > OR=60 [facility] mL/min/1.73m2 [place] BUN/creatinine ratio 13 6 - 22 (calc) [facility] [place] Sodium 139 135 - 146 mmol/L [facility] [place] Potassium 3.9 3.5 - 5.3 mmol/L [facility] [place] Chloride 103 98 - 110 mmol/L [facility] [place] CO2 27 20 - 31 mmol/L [facility] [place] Calcium 9.4 8.6 - 10.3 mg/dL [facility] [place] Protein 6.5 6.1 - 8.1 g/dL [facility] [place] Albumin, S 4.2 3.6 - 5.1 g/dL [facility] Globulin, total 2.3 1.9 - 3.7 g/dL [facility] (calc) [place] Albumin/globulin ratio 1.8 1.0 - 2.5 (calc) [facility] Total bilirubin 0.4 0.2 - 1.2 mg/dL [facility] [place] Alkaline phosphatase 41 40 - 115 U/L [facility] AST 32 10 - 35 U/L [facility] ALT 22 9 - 46 U/L [facility] [place] Specimen Blood Narrative Performed At FASTING:YES [facility] FASTING: YES Other Results Text Performing Organization Information: Site ID: [id number] Name: [facility] Address: [address] [place] [phone] Director: Jackeline Golden Performing Organization Address City/State/Zipcode Phone Number [place] [phone] Large Joint Arthrocentesis (11/14/2017 11:51 AM) Narrative Performed At Shyam Ford MD 11/14/2017 11:51 AM Large Joint Arthrocentesis Consent given by: patient Supporting Documentation Indications: pain Procedure Details Preparation: Patient was prepped and draped in the usual sterile fashion Ultrasound guided: no Location: knee - L knee Left side: Needle size: 25 G Approach: anteromedial Left knee medications administered: 80 mg methylPREDNISolone acetate 40 mg/mL Patient tolerance: patient tolerated the procedure well with no immediate complications XR Knee 4+ Vw Left (11/14/2017 11:13 AM) Narrative Performed At 4 views of the left knee demonstrate no evidence of acute bony or [facility] articular abnormalities.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 Performing Organization Address City/State/Zipcode Phone Number [facility] [address] [place] [place] [address] after 07/13/2017 Insurance Payer Benefit Plan / Group Subscriber ID Type Phone Address MEDICARE MEDICARE PART A AND B xxxxxxxxxx Medicare [place], [place] BCBS BCBS PAR/TRAD PLAN xxxxxxxxxxxx Indemnity Home: [facility] [address] [place] [phone] [phone]
--- NOTE | 2018-07-14 12:10 | ER ---
Nurse's Notes [facility] Name: Abundio Cruz Age: 73 yrs Sex: Male : 1945 Arrival Date: 07/14/2018 Time: 09:59 Bed 7 Private MD: out of town, doctor Diagnosis: Hematoma Presentation: 07/14 10:10 Presenting complaint: Patient states: Had a cardiac ablation on 06/26/2018, and reports ss that L femoral area healed up nicely, however the R side seems to still have a knot and doesn't look right. Pt states his follow up appointment was supposed to be 2-3 weeks post procedure, but it's scheduled for next month. Transition of care: patient was not received from another setting of care. Onset of symptoms was June 26, 2018. Risk Assessment: Do you want to hurt yourself or someone else? Patient reports no desire to harm self or others. Initial Sepsis Screen: Does the patient meet any 2 criteria? No. Patient's initial sepsis screen is negative. Does the patient have a suspected source of infection? No. Patient's initial sepsis screen is negative. Care prior to arrival: None. 10:10 Method Of Arrival: Ambulatory ss 10:10 Acuity: LUISA 3 ss Historical: - Allergies: 10:15 No Known Allergies; ss - Home Meds: 11:40 amiodarone 200 mg Oral tab 1 tab once daily [Active]; amlodipine-valsartan 10-160 mg jl7 oral tab once daily [Active]; aspirin 81 mg Oral chew 1 tab once daily [Active]; atorvastatin 80 mg Oral tab 1 tab once daily [Active]; cetirizine 10 mg Oral tab 1 tab once daily [Active]; Dexilant 60 mg Oral CpDB 1 cap once daily [Active]; fenofibrate 145 mg Oral cap 1 cap once daily [Active]; glimepiride 4 mg Oral tab 1 tab once daily [Active]; hydrochlorothiazide 25 mg Oral tab 1 tab once daily [Active]; Januvia 100 mg Oral tab 1 tab once daily [Active]; Basaglar 100 units/ml 30 units in evening [Active]; levothyroxine 75 mcg tab 1 tab once daily [Active]; metoprolol tartrate 50 mg oral tab once daily [Active]; Fish Oil 2 g Oral cap daily [Active]; tamsulosin 0.4 mg oral cp24 1 cap once daily [Active]; Xarelto 20 mg Oral tab 1 tab once daily [Active]; Colcrys 0.6 mg oral tab [Active]; sucralfate 1 gram Oral tab 4 times per day [Active]; - PMHx: 10:15 Atrial Fib; COPD; Diabetes - NIDDM; GERD; High Cholesterol; Hyperlipidemia; ss Hypertension; - Immunization history:: Adult Immunizations up to date. - Social history:: Smoking status: Patient/guardian denies using tobacco. - Ebola Screening: : Patient denies exposure to infectious person Patient denies travel to an Ebola-affected area in the 21 days before illness onset. Screenin:55 Abuse screen: Denies threats or abuse. Denies injuries from another. Nutritional jl7 screening: No deficits noted. Tuberculosis screening: No symptoms or risk factors identified. Fall Risk None identified. Assessment: 10:48 General: Appears in no apparent distress. uncomfortable, Behavior is calm, cooperative, jl7 appropriate for age. Pain: Complains of pain in right inner thigh Quality of pain is described as "Sore". Neuro: Level of Consciousness is awake, alert, obeys commands, Oriented to person, place, time, situation. Cardiovascular: Denies chest pain, Patient's skin is warm and dry. Respiratory: Airway is patent Respiratory effort is even, unlabored, Respiratory pattern is regular, symmetrical, Denies shortness of breath. Derm: Bruising that is brown, green, on right inner thigh. 11:28 Reassessment: Pt's HR dropped to 38 and back up to the 40's, denies SOB or any other jl7 symptoms, provider notified, no new orders received at this time. Pt reports this is normal for him. Vital Signs: 10:15 BP 141 / 54; Pulse 65; Resp 16; Pulse Ox 97% on R/A; Weight 117.03 kg; Height 5 ft. 7 ss in. (170.18 cm); Pain 0/10; 10:48 BP 110 / 66; Pulse 48; Resp 16 S; Pulse Ox 96% ; Pain 0/10; jl7 11:28 BP 130 / 60; Pulse 42; Resp 14 S; Pulse Ox 95% on R/A; Pain 0/10; jl7 12:20 BP 120 / 59; Pulse 43; Resp 16 S; Pulse Ox 96% on R/A; jl7 10:15 Body Mass Index 40.41 (117.03 kg, 170.18 cm) ED Course: :59 Patient arrived in ED. mr 10:00 out of town, doctor is Private Physician. mr 10:02 Claude Lockwood PA is PHCP. m 10:02 Chuck Yousif MD is Attending Physician. jmm 10:13 Triage completed. ss 10:15 Arm band placed on right wrist. 10:47 Rodrigo Tejeda, RN is Primary Nurse. jl7 10:55 Patient has correct armband on for positive identification. Placed in gown. Bed in low jl7 position. Call light in reach. Side rails up X 1. band instrument repairer on. Pulse ox on. NIBP on. Warm blanket given. 11:45 US Extremity Venous Unilateral Ltd In Process Unspecified. EDMS 11:45 US Lower Extremity Artery Uni Ltd In Process Unspecified. EDMS 12:20 No provider procedures requiring assistance completed. Patient did not have IV access jl7 during this emergency room visit. Administered Medications: No medications were administered Outcome: 12:09 Discharge ordered by . [facility] 12:20 Discharged to home ambulatory. jl7 12:20 Condition: stable 12:20 Discharge instructions given to patient, Instructed on discharge instructions, follow up and referral plans. Demonstrated understanding of instructions, follow-up care. 12:22 Patient left the ED. jl7 Signatures: Dispatcher [employer] EDMS Claude Lockwood PA PA jmm Rivera, Maria mr Charlene Hoff, RN RN Rodrigo Tejeda, THONG RN jl7
--- NOTE | 2018-07-14 12:10 | EDPHYS ---
Physician Documentation [facility] Name: Abundio Cruz Age: 73 yrs Sex: Male : 1945 Arrival Date: 07/14/2018 Time: 09:59 Bed 7 Private MD: out of town, doctor ED Physician Chuck Yousif HPI: 07/14 10:18 This 73 yrs old Male presents to ER via Ambulatory with complaints of right jmm groin swelling. 10:18 The patient presents with swelling. The complaints affect the right inner thigh. Onset: jmm The symptoms/episode began/occurred gradually. Modifying factors: The symptoms are alleviated by nothing. the symptoms are aggravated by nothing. This is a 73 year old male with a history of atrial fibrillation, COPD, DM, HLP, that presents to the ED with right groin swelling beginning after procedure performed on June 26, 2018. Patient states he was catheterized in both femoral arteries. Patient states swelling was worse last week but is concerned the swelling has continued to the right groin. . Historical: - Allergies: 10:15 No Known Allergies; ss - Home Meds: 11:40 amiodarone 200 mg Oral tab 1 tab once daily [Active]; amlodipine-valsartan 10-160 mg jl7 oral tab once daily [Active]; aspirin 81 mg Oral chew 1 tab once daily [Active]; atorvastatin 80 mg Oral tab 1 tab once daily [Active]; cetirizine 10 mg Oral tab 1 tab once daily [Active]; Dexilant 60 mg Oral CpDB 1 cap once daily [Active]; fenofibrate 145 mg Oral cap 1 cap once daily [Active]; glimepiride 4 mg Oral tab 1 tab once daily [Active]; hydrochlorothiazide 25 mg Oral tab 1 tab once daily [Active]; Januvia 100 mg Oral tab 1 tab once daily [Active]; Basaglar 100 units/ml 30 units in evening [Active]; levothyroxine 75 mcg tab 1 tab once daily [Active]; metoprolol tartrate 50 mg oral tab once daily [Active]; Fish Oil 2 g Oral cap daily [Active]; tamsulosin 0.4 mg oral cp24 1 cap once daily [Active]; Xarelto 20 mg Oral tab 1 tab once daily [Active]; Colcrys 0.6 mg oral tab [Active]; sucralfate 1 gram Oral tab 4 times per day [Active]; - PMHx: 10:15 Atrial Fib; COPD; Diabetes - NIDDM; GERD; High Cholesterol; Hyperlipidemia; ss Hypertension; - Immunization history:: Adult Immunizations up to date. - Social history:: Smoking status: Patient/guardian denies using tobacco. - Ebola Screening: : Patient denies exposure to infectious person Patient denies travel to an Ebola-affected area in the 21 days before illness onset. ROS: 11:39 Constitutional: Negative for fever, chills, and weight loss, Cardiovascular: Negative jmm for chest pain, palpitations, and edema, Respiratory: Negative for shortness of breath, cough, wheezing, and pleuritic chest pain, Abdomen/GI: Negative for abdominal pain, nausea, vomiting, diarrhea, and constipation, Back: Negative for injury and pain. 11:39 MS/extremity: Positive for swelling. 11:39 Skin: Positive for ecchymosis. 11:39 All other systems are negative. Exam: 11:39 Head/Face: atraumatic. Chest/axilla: Normal chest wall appearance and motion. jmm Cardiovascular: Regular rate and rhythm. No edema appreciated Respiratory: Normal respirations, no respiratory distress appreciated Abdomen/GI: Non distended, soft 11:39 Constitutional: The patient appears in no acute distress, alert, awake. 11:39 Musculoskeletal/extremity: right groin ecchymosis appreciated, a swollen lymph node is appreciated laterally to the right leg, full dorsalis pedis pulse bilaterally, compartments are soft, NVI. 11:39 Skin: ecchymosis noted to the right groin, no induration or erythema appreciated. 11:39 Neuro: Orientation: is normal, Mentation: is normal, Memory: is normal. 11:39 Psych: Behavior/mood is pleasant, cooperative. Vital Signs: 10:15 BP 141 / 54; Pulse 65; Resp 16; Pulse Ox 97% on R/A; Weight 117.03 kg; Height 5 ft. 7 ss in. (170.18 cm); Pain 0/10; 10:48 BP 110 / 66; Pulse 48; Resp 16 S; Pulse Ox 96% ; Pain 0/10; jl7 11:28 BP 130 / 60; Pulse 42; Resp 14 S; Pulse Ox 95% on R/A; Pain 0/10; jl7 12:20 BP 120 / 59; Pulse 43; Resp 16 S; Pulse Ox 96% on R/A; jl7 10:15 Body Mass Index 40.41 (117.03 kg, 170.18 cm) MDM: 10:17 Patient medically screened. malu 12:07 Data reviewed: vital signs, nurses notes, radiologic studies, ultrasound. Counseling: I malu had a detailed discussion with the patient and/or guardian regarding: the historical points, exam findings, and any diagnostic results supporting the discharge/admit diagnosis, radiology results, the need for outpatient follow up, to return to the emergency department if symptoms worsen or persist or if there are any questions or concerns that arise at home. ED course: Patient is alert and non toxic in appearance on discharge. I discussed the patient's low HR. Stated this has been ongoing and was also evaluated during his stay at [facility] on 06/26. Patient's blood pressure is stable and is non symptomatic. I discussed the need for further follow up with cardiology next week and the patient was given strict return precautions. Patient understood and agrees with the plan of care. . 07/14 10:17 Order name: Extremity Venous Unilateral Ltd; Complete Time: 12:22 07/14 10:18 Order name: Lower Extremity Artery Uni Ltd; Complete Time: 12:22 [facility] Administered Medications: No medications were administered Disposition: 15:44 Co-signature as Attending Physician, Chuck Yousif MD. rn Disposition: 07/14/18 12:09 Discharged to Home. Impression: Hematoma. - Condition is Stable. - Discharge Instructions: Hematoma. - Medication Reconciliation Form, Thank You Letter, Antibiotic Education, Prescription Opioid Use form. - Follow up: Private Physician; When: 2 - 3 days; Reason: Recheck today's complaints, Continuance of care, Re-evaluation by your physician. Signatures: Dispatcher [employer] EDMS Claude Lockwood PA PA jmm Nieto, Roman, MD MD rn Smirch, Shelby, RN RN Rodrigo Tejeda RN RN jl7 Corrections: (The following items were deleted from the chart) 12:22 12:09 07/14/2018 12:09 Discharged to Home. Impression: Hematoma. Condition is Stable. jl7 Forms are Medication Reconciliation Form, Thank You Letter, Antibiotic Education, Prescription Opioid Use. Follow up: Private Physician; When: 2 - 3 days; Reason: Recheck today's complaints, Continuance of care, Re-evaluation by your physician. malu
--- NOTE | 2018-07-14 12:13 | RAD REPORT ---
EXAM DESCRIPTION: US - Extremity Venous Uni Ltd - 07/14/2018 11:45 am CLINICAL HISTORY: Leg pain and swelling history of recent procedure performed not otherwise specifie d COMPARISON: None. TECHNIQUE: Real-time sonographic evaluation of the right lower extremity deep venous systems was per formed. FINDINGS: Normal compressibility, flow augmentation, phasic flow and spontaneous flow are identified in the right lower extremity common femoral, superficial femoral, popliteal and posterior tibial vei ns. No intraluminal filling defects seen. Several small hypoechoic collections are present in the fatty tissues superficial to the right common femoral artery and vein largest is 3.5 x 2.9 x 1.0 cm. Given the history, patient probably had a vas cular access procedure in the small fluid collections are or liquefied hematoma is. No thickened wall or rind. Abscess not suspected. IMPRESSION: No DVT in the right lower extremity. Small fluid collections in the fatty tissues superficial to the common femoral artery and vein believ ed to be small bold hematomas related to a vascular access procedure.
--- NOTE | 2018-07-14 12:17 | RAD REPORT ---
EXAM DESCRIPTION: US - Lower Extremity Artery Uni Ltd - 07/14/2018 11:45 am CLINICAL HISTORY: Leg pain and swelling, history of right groin procedure not otherwise specified COMPARISON: None. TECHNIQUE: Doppler evaluation of the arterial tree performed. Grayscale and Doppler interrogation pe rformed. Waveforms and velocity values were obtained along with visual inspection. FINDINGS: Right common femoral artery peak systolic velocity was 105 cm/second with the femoral kam ry 115 cm/second. Popliteal artery velocity was 86 cm/second.At the ankle the posterior tibial artery velocity was 115 cm/second with the dorsalis pedis artery 128 cm/second. No occlusion or focal flow restricting lesion identifiable. Triphasic and biphasic waveform patterns were seen along the length of the extremity. Dorsalis pedis artery was biphasic to monophasic in pattern. The patient is status post right groin procedure presumed to be vascular access procedure. No pseudoa neurysm identified. As reported on the DVT study there are small hypoechoic collection superficial to the common femoral artery and vein that are probably old hematomas related to the access procedure. Abscess was not suspected. IMPRESSION: Triphasic and biphasic waveform pattern of the right lower extremity present without occ lusion or focal flow restricting lesion identifiable. No pseudoaneurysm. Small fluid collection superficial to the common femoral artery, detailed on the D VT study, are believed be old hematomas. No abscess suspected.
[2018-07-14 12:30] VITALS: BP 120/59; O2SAT 96
== END 2018-07-14 12:22 | disposition home or self-care (01) ==
LOC: ER 09:56
DX: S70.11XA Contusion of right thigh, initial encounter (principal); I10 Essential (primary) hypertension; E11.9 Type 2 diabetes mellitus without complications; I48.91 Unspecified atrial fibrillation; J44.9 Chronic obstructive pulmonary disease, unspecified; E78.00 Pure hypercholesterolemia, unspecified; Z79.01 Long term (current) use of anticoagulants; Z79.82 Long term (current) use of aspirin
CPT/HCPCS: 93926; 93971; 99284

== ENCOUNTER 2020-05-20 15:28 | Emergency (ER) | payer OTHER, BC ==
--- OUTSIDE RECORDS SUMMARY | 2020-05-20 15:31 | XMS REPORT | Clinical Summary ---
:1945 Author Organization [facility] Address [address] [place] [address] Care Team Providers Name Role Phone Gracy Ford MD Primary Care Provider Allergies No Known Allergies Medications Medication Sig Dispensed Refills Start End Status Date Date cetirizine (ZyrTEC) Take 10 mg by 11 04/23/20 Active 10 MG tablet mouth once daily. 16 tamsulosin (FLOMAX) Take 0.4 mg by 2 09/02/20 Active 0.4 mg mouth nightly. 16 capsule,extended release 24hr aspirin (ECOTRIN) Take 81 mg by 0 Active 81 MG enteric mouth daily. coated tablet traMADol (ULTRAM) Take 1 tablet (50 40 tablet 0 05/16/20 Active 50 mg tablet mg total) by 18 mouth every 6 (six) hours as needed for moderate pain. for pain metoprolol TAKE 1 TABLET BY 90 tablet 3 09/25/20 Ac tive succinate XL MOUTH EVERY DAY 18 (TOPROL-XL) 50 mg 24 hr tablet dexlansoprazole Take 60 mg by 0 Active (DEXILANT) 60 mg mouth daily. capsule levothyroxine Take 1 tablet (50 30 tablet 5 10/15/20 Active (SYNTHROID) 50 mcg mcg total) by 19 tabletIndications: mouth every Primary morning for 30 hypothyroidism days. pen needle, USE ONE NEEDLE 100 each 3 11/29/19 Act nevaeh diabetic (BD WITH SYRINGE 20 ULTRA-FINE GAMAL PEN TWICE DAILY FOR NEEDLE) 32 gauge x INSULIN " ADMINISTRATION needleIndications: Type 2 diabetes mellitus with hyperglycemia, with long-term current use of insulin ([facility]) blood sugar Inject 1 strip 100 strip 5 11/29/19 Act nevaeh diagnostic strips under the skin 3 20 (ONETOUCH ULTRA (three) times a BLUE TEST STRIP) day. strip test stripsIndications: Type 2 diabetes mellitus with hyperglycemia, with long-term current use of insulin (HCC) ezetimibe (ZETIA) Take 1 tablet (10 90 tablet 1 12/14/1911/18 Active 10 mg tablet mg total) by 20 021 mouth daily. fenofibrate Take 1 tablet 90 tablet 1 02/25/20 Acti ve (LOFIBRA) 160 MG (160 mg total) by 20 tablet mouth daily. atorvastatin Take 1 tablet (80 90 tablet 1 03/24/20 Active (LIPITOR) 80 MG mg total) by 20 tablet mouth daily. SITagliptin Take 1 tablet 90 tablet 1 03/24/20 Acti ve (Januvia) 100 MG (100 mg total) by 20 tablet mouth daily. insulin ASPART Inject 80 Units 30 pen 5 04/17/20 Active protamine and under the skin 20 insulin ASPART daily before (NovoLOG 70/30) 100 breakfast AND 40 unit/mL (70-30) Units daily insulin pen before dinner. Do all this for 30 days. amlodipine-valsarta Take 1 tablet by 90 tablet 1 05/20/20 Active n (EXFORGE) 10-160 mouth daily. 20 mg per tabletIndications: Essential hypertension VITAMIN D2 50,000 TAKE ONE CAPSULE 5 04/23/2008/31 Discontinued unit capsule BY MOUTH TWICE 16 019 (M ed List PER WEEK. Cleanup) blood sugar Inject 1 strip 100 strip 5 09/21/20 Dis continued diagnostic strips under the skin 3 18 019 (Reorder) (ONETOUCH ULTRA (three) times a BLUE TEST STRIP) day. strip test stripsIndications: Type 2 diabetes mellitus with hyperglycemia, with long-term current use of insulin ([facility]) pen needle, USE ONE NEEDLE 100 each 3 11/13/19 Dis continued diabetic (BD WITH SYRINGE 19 020 (Reo rder) ULTRA-FINE GAMAL PEN TWICE DAILY FOR NEEDLE) 32 gauge x INSULIN " ADMINISTRATION needleIndications: Type 2 diabetes mellitus with hyperglycemia, with long-term current use of insulin ([facility]) amlodipine-valsarta Take 1 tablet by 90 tablet 1 11/30/1911/18 Discontinued n (EXFORGE) 10-160 mouth daily. 19 019 (Reorder) mg per tabletIndications: Essential hypertension fenofibrate Take 160 mg by 30 tablet 5 11/30/19 Dis continued nanocrystallized mouth daily. 19 019 (Reorder) 160 mg tablet ezetimibe (ZETIA) Take 1 tablet (10 90 tablet 1 12/29/1911/18 Discontinued 10 mg tablet mg total) by 020 (Reo rder) mouth daily. atorvastatin Take 1 tablet (80 90 tablet 1 03/20/20 Discontinued (LIPITOR) 80 MG mg total) by 019 ( Reorder) tablet mouth daily. sitaGLIPtin Take 1 tablet 30 tablet 5 03/20/20 Disc ontinued (JANUVIA) 100 MG (100 mg total) by 019 (Reorder) tablet mouth daily. insulin GLARGINE Inject 50 Units 1500 Units 11 03/30/20 Discontinued (BASAGLAR KWIKPEN under the skin 019 (Reorder) U-100 INSULIN) 100 nightly. unit/mL injection (pen) levothyroxine Take 1 tablet (50 30 tablet 5 04/13/20 Discontinued (SYNTHROID, mcg total) by LEVOXYL) 50 mcg mouth every tabletIndications: morning for 30 Primary days. hypothyroidism insulin GLARGINE Inject 60 Units 1800 Units 3 05/30/20 Discontinued (BASAGLAR KWIKPEN under the skin 019 (Reorder) U-100 INSULIN) 100 nightly. unit/mL injection (pen)Indications: Type 2 diabetes mellitus with hyperglycemia, with long-term current use of insulin (HCC) insulin GLARGINE Inject 60 Units 1800 Units 3 05/30/20 Discontinued (BASAGLAR KWIKPEN under the skin 019 (Ineffective) U-100 INSULIN) 100 nightly. unit/mL injection (pen)Indications: Type 2 diabetes mellitus with hyperglycemia, with long-term current use of insulin (HCC) insulin DETEMIR Inject 40 Units 24 mL 3 06/01/20 Discontinued (LEVEMIR) 100 under the skin 2 (Ineffective) unit/mL (3 mL) (two) times a day insulin for 120 days. penIndications: Type 2 diabetes mellitus with hyperglycemia, with long-term current use of insulin ([facility]) levothyroxine Take 1 tablet (25 90 tablet 1 07/02/20 Discontinued (SYNTHROID, mcg total) by 019 (Med List LEVOXYL) 25 mcg mouth every Cl eanup) tabletIndications: morning. Primary hypothyroidism amlodipine-valsarta Take 1 tablet by 90 tablet 1 07/18/2029/11 Discontinued n (EXFORGE) 10-160 mouth daily. 19 020 mg per tabletIndications: Essential hypertension fenofibrate Take 1 tablet 90 tablet 1 08/27/20 Disc ontinued (LOFIBRA) 160 MG (160 mg total) by 020 (Reorder) tablet mouth daily. insulin ASPART Inject 60 Units 30 mL 2 08/31/20 Discontinued protamine and under the skin 020 insulin ASPART daily before (NovoLOG 70/30) 100 breakfast AND 40 unit/mL (70-30) Units daily insulin pen before dinner. Do all this for 90 days. atorvastatin Take 1 tablet (80 90 tablet 1 09/21/20 Discontinued (LIPITOR) 80 MG mg total) by 020 ( Reorder) tablet mouth daily. blood sugar Inject 1 strip 100 strip 5 09/21/20 Dis continued diagnostic strips under the skin 3 020 (Reorder) (ONETOUCH ULTRA (three) times a BLUE TEST STRIP) day. strip test stripsIndications: Type 2 diabetes mellitus with hyperglycemia, with long-term current use of insulin ([facility]) SITagliptin Take 1 tablet 90 tablet 1 09/21/20 Disc ontinued (JANUVIA) 100 MG (100 mg total) by 020 (Reorder) tablet mouth daily. insulin ASPART Inject 60 Units 30 pen 2 10/24/19 Discontinued protamine and under the skin 020 insulin ASPART daily before (NovoLOG 70/30) 100 breakfast AND 40 unit/mL (70-30) Units daily insulin pen before dinner. Do all this for 30 days. insulin ASPART Inject 70 Units 30 pen 2 12/03/19 Discontinued protamine and under the skin 020 ( Reorder) insulin ASPART daily before (NovoLOG 70/30) 100 breakfast AND 40 unit/mL (70-30) Units daily insulin pen before dinner. Do all this for 30 days. insulin ASPART Inject 70 Units 30 pen 2 01/28/20 Discontinued protamine and under the skin 20 020 ( Reorder) insulin ASPART daily before (NovoLOG 70/30) 100 breakfast AND 40 unit/mL (70-30) Units daily insulin pen before dinner. Do all this for 30 days. amlodipine-valsarta Take 1 tablet by 90 tablet 1 01/28/2001/16 Discontinued n (EXFORGE) 10-160 mouth daily for 20 020 mg per 180 days. tabletIndications: Essential hypertension insulin ASPART Inject 70 Units 30 pen 2 03/04/20 Discontinued protamine and under the skin 20 020 ( Reorder) insulin ASPART daily before (NovoLOG 70/30) 100 breakfast AND 40 unit/mL (70-30) Units daily insulin pen before dinner. Do all this for 30 days. insulin ASPART Inject 80 Units 30 pen 2 03/04/20 Discontinued protamine and under the skin 20 020 ( Reorder) insulin ASPART daily before (NovoLOG 70/30) 100 breakfast AND 40 unit/mL (70-30) Units daily insulin pen before dinner. Do all this for 30 days. Active Problems Problem Noted Date Hypercholesterolemia 11/29/2019 PAF (paroxysmal atrial fibrillation) 06/26/2018 Memory difficulties 05/24/2018 BPH with urinary obstruction 02/22/2018 Acute pain of left knee 11/14/2017 Hammer toes of both feet 11/14/2017 Left hip pain 12/06/2016 Coronary artery disease involving [place] heart without angina pectoris 11/02/2016 Atrial fibrillation 11/02/2016 SOB (shortness of breath) 11/02/2016 Hypertension, essential 09/29/2016 Type 2 diabetes mellitus with hyperglycemia 06/30/2016 Acquired hypothyroidism 06/30/2016 Encounters Date Type Specialty Care Team Description 05/20/2020 Refill Sports Medicine Emmanuel Ford hy pertension Shyam Dubose MD 04/17/2020 Refill Sports Medicine Albertina Gallo MA 03/24/2020 Refill Sports Medicine Randolph Sparks MA 03/04/2020 Orders Only Sports Medicine Shyam Ford MD 02/28/2020 Telemedicine Sports Medicine Braunreiter, Type 2 diabe brandi mellitus with hyperglycemia, with long-term current use of insulin (HCC) (Primary Dx); Shyam Dubose MD Hypertension, e ssential; Hypercholestero lemia 02/26/2020 Travel 02/25/2020 Refill Sports Randolph Wu MA 02/05/2020 Hospital Encounter Radiology McMenemy, Thyrotoxi cosis with Abad Paul, diffuse goiter without thyrotoxic flex is or storm 02/05/2020 Travel 02/04/2020 Travel 01/29/2020 Refill Sports Medicine Randolph Sparks MA 01/28/2020 Refill Sports Medicine Liliana, Essential hy pertension Shyam Dubose MD 01/28/2020 Refill Sports Medicine Albertina Gallo MA 01/04/2020 Travel 01/04/2020 Transcribe Orders Access McMenemy, Thyrotoxic osis with Abad Paul, diffuse goiter without thyrotoxic flex is or storm (Primary Dx) 12/14/2019 Refill Sports Medicine Albertina Gallo MA 12/05/2019 Telephone Sports Medicine Randolph Sparks, POLLY 12/03/2019 Orders Only Sports Medicine Shyam Ford MD 11/29/2019 Office Visit Sports Medicine Familiareiter, Type 2 diabe brandi mellitus with hyperglycemia, with long-term current use of insulin (HCC) (Primary Dx); Shyam Dubose MD Hypertension, e ssential; Acquired hypoth yroidism; Hypercholestero lemia; Long-term curre nt use of high risk medication other than anticoagulant 11/23/2019 [facility] 10/24/2019 Refill Sports Medicine Shyam Ford MD 10/13/2019 Refill Sports Medicine Liliana, Primary hypo thyroidism Shyam Dubose MD 09/21/2019 Refill Sports Medicine Amadaiter, Type 2 diabe brandi mellitus Shyam Dubose MD with hyperglyce jameel, with long-term curre nt use of insulin (HCC) 09/03/2019 Telephone Sports Randolph Wu MA 08/31/2019 Orders Only Sports Shyam Osborn MD 08/29/2019 Office Visit Sports Medicine Familiareiter, Type 2 diabe brandi mellitus with hyperglycemia, with long-term current use of insulin (HCC) (Primary Dx); Shyam Dubose MD Hypertension, e ssential; Hypercholestero lemia; Primary hypothy roidism; Hammer toes of both feet 08/27/2019 Refill Sports Medicine Shyam Ford MD 08/06/2019 Documentation Quality Shyam Ford MD 07/18/2019 Refill Sports Medicine Liliana, Essential hy pertension Shyam Dubose MD 06/30/2019 Refill Sports Medicine Liliana, Primary hypo thyroidism Shyam Dubose MD 06/01/2019 Telephone Sports Medicine Albertina Gallo MA 06/01/2019 Orders Only Sports Medicine Amadaiter, Type 2 diabe brandi mellitus Shyam Dubose MD with hyperglyce jameel, with long-term curre nt use of insulin (HCC) ( Primary Dx) 05/30/2019 Office Visit Sports Medicine Liliana, Type 2 diabe brandi mellitus Shyam Dubose MD with hyperglyce jameel, with long-term curre nt use of insulin (HCC) ( Primary Dx) after 05/20/2019 Immunizations Name Administration Dates Next Due FLUZONE HIGH-DOSE PF 05/26/2018 Pneumococcal Conjugate 13-Valent 05/10/2017 Family History Medical History Relation Name Comments Cancer Father Cancer Mother Relation Name Status Comments Brother Father Mother Social History Tobacco Use Types Packs/Day Years Used Date Never Smoker Smokeless Tobacco: Never Used Alcohol Use Drinks/Week oz/Week Comments No Sex Assigned at Date Recorded Male 05/22/2019 7:36 AM CDT Job Start Date Occupation Industry Not on file Not on file Not on file Travel History Travel Start Travel End No recent travel history available. Last Filed Vital Signs Vital Sign Reading Time Taken Comments Blood Pressure 136/70 11/29/2019 1:13 PM [facility] Pulse 57 11/29/2019 1:13 PM [facility] Temperature - - Respiratory Rate 20 11/29/2019 1:13 PM [facility] Oxygen Saturation - - Inhaled Oxygen Concentration - - Weight 116 kg (256 lb) 02/28/2020 10:00 AM CDT Height 170.2 cm (5' 7") 02/28/2020 10:00 AM CDT Body Mass Index 40.1 02/28/2020 10:00 AM CDT Plan of Treatment Health Maintenance Due Date Last Done Comments DIABETIC RETINAL EYE EXAM 1945 DIABETIC FOOT EXAM 1957 URINE MICROALBUMIN 1957 COLONOSCOPY SCREENING 1997 SHINGLES VACCINES (#1) 1997 65+ PNEUMOCOCCAL VACCINE (2 of 2 - 05/10/2018 05/10/2017 PPSV23) INFLUENZA VACCINE 05/17/2020 08/09/2019, 05/26/2018, 05/26/2018, Additional history exists Implants Implanted Type Area Tech Ed/[employer] Device Shelf Model / Identifier Expiration Serial / Date Lot System Reveal Linq W/Monitors - [id number] Cardiac N/A: MEDTRON IC 04/29/2019 LINQSYS / Implanted: 06/26/2018 at [facility] (Quantity not on file) Pac emakers and N/A CARDIAC RHYTHM / Related DISEASE MGMT [id number] Products Procedures Procedure Name Priority Date/Time Associated Diagnosis Comme nts LIPID PANEL Routine 03/01/2020 Hypertension, es sential Results for 11:08 AM CDT Hypercholesterolemia this pr ocedure are in the results section. HEMOGLOBIN A1C Routine 03/01/2020 Type 2 diabetes mellitus R esults for 11:08 AM CDT with hyperglycemia, with thi s procedure long-term current use of are in the insulin (HCC) results section. COMPREHENSIVE Routine 03/01/2020 Type 2 diabetes mellitus Re sults for METABOLIC PANEL 11:08 AM CDT with hyperglycemia, with this procedure long-term current use of are in the insulin (HCC) results Hypertension, es sential section. Hypercholesterolemia CBC HEMOGRAM Routine 03/01/2020 Hypertension, es sential Results for 11:08 AM CDT Hypercholesterolemia this pr ocedure are in the results section. CT ORBITS WO Routine 02/05/2020 Thyrotoxicosis with Results for CONTRAST 1:08 PM CDT diffuse goiter without this procedure thyrotoxic crisis or storm a re in the results section. THYROID STIMULATING Routine 12/01/2019 Acquired hypothyroidi sm Results for HORMONE 9:31 AM [facility] this procedure are in the results section. LIPID PANEL Routine 12/01/2019 Hypertension, es sential Results for 9:31 AM [facility] Hypercholesterolemia this pr ocedure are in the results section. HEMOGLOBIN A1C Routine 12/01/2019 Type 2 diabetes mellitus R esults for 9:31 AM [facility] with hyperglycemia, with thi s procedure long-term current use of are in the insulin (HCC) results Hypertension, es sential section. Hypercholesterolemia COMPREHENSIVE Routine 12/01/2019 Type 2 diabetes mellitus Re sults for METABOLIC PANEL 9:31 AM [facility] with hyperglycemia, with this procedure long-term current use of are in the insulin ([facility]) results section. CBC HEMOGRAM Routine 12/01/2019 Hypertension, es sential Results for 9:31 AM [facility] Hypercholesterolemia this pr ocedure are in the results section. HOMOCYSTINE, PLASMA Routine 12/01/2019 Long-term current use of Results for 9:31 AM [facility] high risk medication other t his procedure than anticoagulant are in th e results section. VITAMIN B12 LEVEL Routine 12/01/2019 Long-term current use o f Results for 9:31 AM [facility] high risk medication other t his procedure than anticoagulant are in th e results section. THYROID STIMULATING Routine 08/30/2019 Primary hypothyroidis m Results for HORMONE 9:53 AM [facility] this procedure are in the results section. T4, FREE Routine 08/30/2019 Primary hypothyroidism Resul ts for 9:53 AM [facility] this procedure are in the results section. LIPID PANEL Routine 08/30/2019 Hypercholesterolemia Results for 9:53 AM [facility] this procedure are in the results section. HEMOGLOBIN A1C Routine 08/30/2019 Type 2 diabetes mellitus R esults for 9:53 AM [facility] with hyperglycemia, with thi s procedure long-term current use of are in the insulin ([facility]) results Hypertension, essential sect ion. COMPREHENSIVE Routine 08/30/2019 Type 2 diabetes mellitus Re sults for METABOLIC PANEL 9:53 AM [facility] with hyperglycemia, with this procedure long-term current use of are in the insulin ([facility]) results Hypertension, es sential section. Hypercholesterolemia CBC HEMOGRAM Routine 08/30/2019 Hypertension, essential Resu lts for 9:53 AM [facility] this procedure are in the results section. HEMOGLOBIN A1C Routine 05/31/2019 Type 2 diabetes mellitus R esults for 7:37 AM CDT with hyperglycemia, with thi s procedure long-term current use of are in the insulin ([facility]) results section. COMPREHENSIVE Routine 05/31/2019 Type 2 diabetes mellitus Re sults for METABOLIC PANEL 7:37 AM CDT with hyperglycemia, with this procedure long-term current use of are in the insulin ([facility]) results section. CBC HEMOGRAM Routine 05/31/2019 Type 2 diabetes mellitus Res ults for 7:37 AM CDT with hyperglycemia, with thi s procedure long-term current use of are in the insulin ([facility]) results section. HEMOGLOBIN A1C Routine 05/31/2019 after 05/20/2019 Results CBC hemogram (03/01/2020 11:08 AM CDT)Only the most recent of4 resultswithin the time period is included. Pathologist Sig nature WBC 5.8 3.8 - 10.8 [facility] Thousand/uL [place] RBC 4.47 4.20 - 5.80 [facility] Million/uL [place] HGB 12.4 (L) 13.2 - 17.1 g/dL [facility] [place] HCT 37.6 (L) 38.5 - 50.0 % [place] MCV 84.1 80.0 - 100.0 fL [place] MCH 27.7 27.0 - 33.0 pg [place] MCHC 33.0 32.0 - 36.0 g/dL [place] RDW 14.5 11.0 - 15.0 % [place] Platelet count 148 140 - 400 [place] Thousand/uL [place] MPV 11.1 7.5 - 12.5 fL [place] Specimen Blood Narrative Performed At FASTING:YES [facility] FASTING: YES Resulting Agency Comment Performing Organization Information: Site ID: [id number]: [facility] ro[facility] Address: [address] [place] [phone] Director: Denys Carranza Performing Organization Address City/State/Zipcode Phone Number [place] [address] [address] Hemoglobin A1c (03/01/2020 11:08 AM CDT)Only the most recent of5 resultswithin the time period is included. Hemoglobin A1C 7.3 (H) <5.7 % of [place] Comment: total Hgb [place] For someone without known diabetes, a hemoglobin A1c value of 6.5% or greater indicates that they may have diabetes and this should be confirmed with a follow-up test. For someone with known diabetes, a value <7% indicates that their diabetes is well controlled and a value greater than or equal to 7% indicates suboptimal control. A1c targets should be individualized based on duration of diabetes, age, comorbid conditions, and other considerations. Currently, no consensus exists regarding use of hemoglobin A1c for diagnosis of diabetes for children. Specimen Blood Narrative Performed At FASTING:YES [facility] FASTING: YES Resulting Agency Comment Performing Organization Information: Site ID: [id number] Name: [facility] Address: [address] [place] [phone] Director: Denys Carranza Performing Organization Address City/[facility]/Zipcode Phone Number [facility] [place] [address] [place], [place] [id number] Lipid panel (03/01/2020 11:08 AM CDT)Only the most recent of3 resultswithin the time period is included. [facility] Cholesterol, total 122 <200 mg/dL [facility] [place] HDL cholesterol 22 (L) > OR = 40 [facility] mg/dL [place] Triglycerides 202 (H) <150 mg/dL [facility] Comment: [place] If a non-fasting specimen was collected, consider repeat triglyceride testing on a fasting specimen if clinically indicated. Kristen et al. J. of Clin. Lipidol. 2015;9:129-169. LDL cholesterol 71 mg/dL (calc) [facility] calculated Comment: [place] Reference range: <100 Desirable range <100 mg/dL for primary prevention; <70 mg/dL for patients with CHD or diabetic patients with > or = 2 CHD risk factors. LDL-C is now calculated using the Mirza-Heredia calculation, which is a validated novel method providi ng better accuracy than the Friedewald equation in the estimation of LDL-C. Mirza GLORIA et al. JIE. 2013;310(19): 2192-5951 (http://education.CharityStars.Mobile Card/faq/FMS282) Cholesterol/HDL 5.5 (H) <5.0 (calc) [facility] Non-HDL cholesterol 100 <130 mg/dL [place] Comment: (calc) DIAL For patients with diabetes plus 1 major ASCVD risk factor, treating to a non-HDL-C goal of <100 mg/dL (LDL-C of <70 mg/dL) is considered a therapeutic option. Specimen Blood Narrative Performed At FASTING:YES [facility] FASTING: YES Resulting Agency Comment Performing Organization Information: Site ID: [id number] Name: [facility] Address: [address] [place] [phone] Director: Denys Carranza Performing Organization Address City/State/Zipcode Phone Number [facility] [place] [address] [place] [address] Comprehensive metabolic panel (03/01/2020 11:08 AM CDT)Only the most recent of4 resultswithin the time period is included. Glucose 189 (H) 65 - 99 [facility] Comment: mg/dL [place] Fasting reference interval For someone without known diabetes, a glucose value >125 mg/dL indicates that they may have diabetes and this should be confirmed with a follow-up test. BUN 20 7 - 25 mg/dL [place] Creatinine 1.01 0.70 - 1.18 [facility] Comment: mg/dL [place] For patients >49 years of age, the reference limit for Creatinine is approximately 13% higher for people identified as -Filipino. EGFR Non-Afr. 74 > OR = 60 [facility] Filipino mL/min/1.73m [place] 2 EGFR 86 > OR = 60 [facility] Filipino mL/min/1.73m [place] 2 BUN/creatinine NOT APPLICABLE 6 - 22 [facility] ratio (calc) [place] Sodium 139 135 - 146 [facility] mmol/L [place] Potassium 3.9 3.5 - 5.3 [facility] mmol/L [place] Chloride 103 98 - 110 [facility] mmol/L [place] CO2 27 20 - 32 [facility] mmol/L [place] Calcium 9.6 8.6 - 10.3 [facility] mg/dL [place] Protein 7.3 6.1 - 8.1 [facility] g/dL [place] Albumin, S 3.9 3.6 - 5.1 [facility] g/dL [place] Globulin, total 3.4 1.9 - 3.7 [facility] g/dL (calc) [place] Albumin/globulin 1.1 1.0 - 2.5 [facility] ratio (calc) [place] Total bilirubin 0.6 0.2 - 1.2 [facility] mg/dL [place] Alkaline 63 35 - 144 U/L [facility] phosphatase [place] AST 44 (H) 10 - 35 U/L [facility] [place] ALT 33 9 - 46 U/L [place] Specimen Blood Narrative Performed At FASTING:YES [facility] FASTING: YES Resulting Agency Comment Performing Organization Information: Site ID: [id number] Name: [facility] ro[facility] Address: [address] [place] [address] Director: Denys Carranza Performing Organization Address City/State/Zipcode Phone Number [facility] [place] [address] [place] [address] CT Orbits Wo Contrast (02/05/2020 1:08 PM CDT) Specimen Narrative Performed At EXAMINATION: CT ORBITS WO CONTRAST RADIANT CLINICAL HISTORY: E05.00 Thyrotoxicosis with diffuse g oiter without thyrotoxic crisis or storm, e05.00 COMPARISON: MRI brain 06/28/2018 TECHNIQUE: Axial noncontrast enhanced images through t he orbits were obtained with bone and soft tissue algorithms. Coronal and sagittal reconstructions were also performed. CT imaging was pe rformed with iterative reconstruction technique and/o r automated exposure control to reduce rad iation dose. FINDINGS: Prominent orbital fat without significant orbital prop tosis. No significant enlargement of the extraocular muscles. No nspecific fatty infiltration of portions of the extraocu lar muscles. No evidence of orbital mass, collection, or inflammato ry stranding. Unremarkable appearance of the globes, optic nerve she aths, and lacrimal glands. No mass effect on the optic apparatus or junaid nous sinus lesion identified. Mild mucosal thickening of the inferolateral aspect of the left maxillary sinus. Unerupted maloriented left maxillary tooth. Limited evaluation of the visualized intracranial contents dem onstrates no acute abnormality. IMPRESSION: Stable appearance of the orbits compared with the MRI obtained on 06/28/2018. No significant enlargement of the extraocul ar muscles to suggest thyroid ophthalmopathy. [id number] Procedure Note Hm Interface, Radiology Results Incoming - 02/05/2020 1:25 PM CDT EXAMINATION: CT ORBITS WO CONTRAST CLINICAL HISTORY: E05.00 Thyrotoxicosis with diffuse goiter without thyrotoxic crisis or storm, e05.00 COMPARISON: MRI brain 06/28/2018 TECHNIQUE: Axial noncontrast enhanced im ages through the orbits were obtained with bone and soft tissue algorithms. Coronal and sagittal reconstructions were also performed. CT imaging was performed with iterative reconstruction technique and/or automated exposure control to reduce rad iation dose. FINDINGS: Prominent orbital fat without significan t orbital proptosis. No significant enlargement of the extraocular muscles. Nonspecific fatty infiltration of portions of the extraocular muscles. No evidence of orbital mass, collection, or inflammatory stranding. Unremarkable appearance of the globes, optic nerve sheaths, and lacrimal glands. No mass effect on the optic apparatus or cavernous sinus lesion identified. Mild mucosal thickening of the inferolat eral aspect of the left maxillary sinus. Unerupted maloriented left maxillary tooth. Limited evaluation of the visualized intracranial contents demonstrates no acute abnormality. IMPRESSION: Stable appearance of the orbits compared with the MRI obtained on 06/28/2018. No significant enlargement of the extraocular muscles to suggest thyroid ophthalmopathy. [id number] Performing Organization Address [facility]/Zipcode Phone Number [facility] [address] [place] [address] Homocystine, plasma (12/01/2019 9:31 AM [facility]) Homocysteine 20.1 (H) <11.4 umol/L [facility] Comment: [facility]NO[facility] Homocysteine is increased by functional deficiency of G II folate or vitamin B12. Testing for methylmalonic acid differentiates between these deficiencies. Other cause s of increased homocysteine include renal failure, folat e antagonists such as methotrexate and phenytoin, and exposure to nitrous oxide. Elfego Davis, et al., [facility]ie [facility] Med. 1999;131(5):331-9. Specimen Blood Narrative Performed At FASTING:YES [facility] FASTING: YES Resulting Agency Comment Performing Organization Information: Site ID: [id number] [facility]: [facility] Address: [address] [place] [phone] Director: Dr. Denys herron Performing Organization Address [facility] [place] Number [facility] [place] [address] Thyroid stimulating hormone (12/01/2019 9:31 AM [facility])Only the most recent of2 resultswithin the time period is included. Pathologist Sig nature TSH 3.49 0.40 - 4.50 mIU/L Jam[facility] ON Specimen Blood Narrative Performed At FASTING:YES [facility] FASTING: YES Resulting Agency Comment Performing Organization Information: Site ID: [id number] [facility]: [facility] Address: [address] [place] [phone] Director: Denys Carranza Performing Organization Address [facility]/Zipcode Phone Number [facility] [address] [address] Vitamin B12 level (12/01/2019 9:31 AM [facility]) Vitamin B12 308 200 - 1,100 [facility] Comment: pg/mL [facility] Please Note: Although the reference range for vitamin B12 is 200-1100 pg/mL, it has been reported that betwe en 5 and 10% of patients with values between 200 and 400 pg/mL may experience neuropsychiatric and hematologic abnormalities due to occult B12 deficiency; less than 1% of patients with values above 400 pg/mL will have symp toms. Specimen Blood Narrative Performed At FASTING:YES [facility] FASTING: YES Resulting Agency Comment Performing Organization Information: Site ID: [id number] [facility]: [facility] Address: [address] [place] [phone] Director: Denys Carranza Performing Organization Address City/State/[facility] Phone Number [facility] [address] [address] T4, free (08/30/2019 9:53 AM [facility]) Pathologist Sig nature T4, free 1.2 0.8 - 1.8 ng/dL Jamalon [facility] Specimen Blood Narrative Performed At FASTING:YES [employer] FASTING: YES Resulting Agency Comment Performing Organization Information: Site ID: [id number] [facility]: [facility] Address: [address] [place] [phone] Director: Denys Carranza Performing Organization Address [facility]/State/Zipcode Phone Number [facility] [address] [address] after 05/20/2019 Insurance Payer Benefit Plan / Subscriber ID Effective Phone Address T ype Group Dates BCBS COMMERCIAL BCBS MEDICARE xxxxxxxxxxxx 2014-Pres Commercial SUPPLEMENT ent MEDICARE MEDICARE PART A xxxxxxxxxxx 2012-Pres [place], [place] Medicare AND B ent Advance Directives For more information, please contact: [phone] Type Date Recorded Patient Equipment Operat0R Explanati on Advance Directives, Living Will and 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
--- OUTSIDE RECORDS SUMMARY | 2020-05-20 15:33 | XMS REPORT | Continuity of Care Document ---
:1945 Author Organization [facility] t Address [address] [place] [address] Care Team Providers Name Role Phone Abdifatah FRANCISCO, A. Primary Care Physician Gracy Ford MD Attending Clinician Cleo MATIAS Attending Clinician Unavailable Bridger MATIAS Attending Clinician Unavailable Humberto Cat MD Attending Clinician [facility] Attending Clinician Unavailable Payers Payer Name Policy Policy Number Effective Expiration Source Type Date Date BCBS COMMERCIALBCBS xxxxxxxxxxxx 2014 [facility] MEDICARE 00:00:00 [facility] SUPPLEMENTxxxxxxxxxxx 2014-[facility] ercial MEDICAREMEDICARE PART xxxxxxxxxxx 2012 [facility] A AND 00:00:00 Restoration B[place] Condition Condition Condition Status Onset Resolution Last Treating Co mments Source Name Details Category Date Date Treatment Clinician Date Hyperchole Hyperchole Disease Active [facility] [place] sterolemia sterolemia 2-13 Me thodi 00:00: st 00 PAF PAF Disease Active [place] (paroxysma (paroxysma 9-10 Me th[facility] l atrial l atrial 00:00: st fibrillati fibrillati 00 on) on) Memory Memory Disease Active [place] difficulti difficulti 8-08 Me [facility] es es 00:00: st 00 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 urinary 5-09 [facility] obstructio obstructio 00:00: st n n 00 Acute pain Acute pain Disease Active [place] of left of left 11-14 [facility] knee knee 00:00: st Hammer Hammer Disease Active [place] toes of toes of 11-14 [facility] both feet both feet 00:00: st 00 Left hip Left hip Disease Active [place] pain pain 2-20 Method[facility] 00:00: st 00 Coronary Coronary Disease Active [place] artery artery 1-17 [facility] disease disease 00:00: st involving involving 00 p[place]enta paskenta heart heart without without angina angina pectoris pectoris Atrial Atrial Disease Active [place] fibrillati fibrillati 1-17 Me thodi on on 00:00: st 00 SOB SOB Disease Active [place] (shortness (shortness 1-17 Me thodi of breath) of breath) 00:00: st 00 Hypertensi Hypertensi Disease Active 2015-10 [place] on, on, 2-14 [facility] essential essential 00:00: st 00 Type 2 Type 2 Disease Active [place] diabetes diabetes 914 Method i mellitus mellitus 00:00: st with with 00 hyperglyce hyperglyce jameel jameel Acquired Acquired Disease Active [place] hypothyroi hypothyroi 14 Me th[facility] dism dism 00:00: st 00 Allergies, Adverse Reactions, Alerts This patient has no known allergies or adverse reactions. Family History Family Member Diagnosis Comments Start Date Stop Date Source Natural father Cancer [facility] Social History Social Habit Start Date Stop Date Quantity Comments Source Sex Assigned At M [place] M ethodist Alcohol intake 2020-02-28 2020-02-28 [facility] 00:00:00 non-drinker of alcohol (finding) Smoking Status Start Date Stop Date Source Never smoker [place] Methodis t Medications Ordered Filled Start Stop Current Ordering Indication Dosage Frequency Signature Comments Components Source Medication Medication Date Date Medication? Clinician (SIG) Name Name amlodipine- Yes Essential 1{tbl} QD Take 1 [place] valsartan 8-04 hypertensio tablet by Jose (EXFORGE) 00:00: n mouth st 10-160 mg 00 daily. per tablet insulin Yes Inject 80 [place] ASPART 7-02 Units [facility] protamine 00:00: under the st and insulin 00 skin daily ASPART before (NovoLOG breakfast 70/30) 100 AND 40 unit/mL Units (70-30) daily insulin pen before dinner. Do all this for 30 days. atorvastati 2020-0 Yes 80mg QD Take 1 [place] (LIPITOR) 6-08 tablet (80 Me thodi 80 MG 00:00: mg total) st tablet 00 by mouth daily. SITagliptin 2020-0 Yes 100mg QD Take 1 [place] (Januvia) 6-08 tablet Methodi 100 MG 00:00: ([address] tablet 00 total) by mouth daily. insulin 2019-0 2020- No Inject 80 [place] ASPART 5-19 07-02 Units [facility] protamine 00:00: 00:[address] and insulin 00 :00 skin daily ASPART before (NovoLOG breakfast 70/30) 100 AND 40 unit/mL Units (70-30) daily insulin pen before dinner. Do all this for 30 days. insulin 2019-0 2020- No Inject 70 [place] ASPART 5- 05-19 Units [facility] protamine 00:00: 00:[address] and insulin 00 :00 skin daily ASPART before (NovoLOG breakfast 70/30) 100 AND 40 unit/mL Units (70-30) daily insulin pen before dinner. Do all this for 30 days. fenofibrate 2020-0 Yes 160mg QD Take 1 [place] (LOFIBRA) 5-11 tablet Methodi 160 MG 00:00: ([address] tablet 00 total) by mouth daily. amlodipine- 2019-0 2020- No Essential 1{tbl} QD Take 1 Vu valsartan -13 08-04 hypertensio tablet by [facility] (EXFORGE) 00:00: 00:[address] 10-160 mg 00 :00 daily for per tablet 180 days. insulin 2019-0 2020- No Inject 70 [place] ASPART -13 05-19 Units [facility] protamine 00:00: 00:[address] and insulin 00 :00 skin daily ASPART before (NovoLOG breakfast 70/30) 100 AND 40 unit/mL Units (70-30) daily insulin pen before dinner. Do all this for 30 days. ezetimibe 2019-0 2020- No 10mg QD Take 1 [place] (ZETIA) 10 -28 -27 tablet (10 Me thodi mg tablet 00:00: 23:59 mg total) st 00 :00 by mouth daily. insulin 2019- No Inject 70 [place] ASPART 2-17 04-13 Units [facility] protamine 00:00: 00:[address] and insulin 00 :00 skin daily ASPART before (NovoLOG breakfast 70/30) 100 AND 40 unit/mL Units (70-30) daily insulin pen before dinner. Do all this for 30 days. pen needle, Yes Type 2 USE ONE H rust diabetic 2-13 diabetes NEEDLE Metho di (BD 00:00: mellitus WITH st ULTRA-FINE 00 with SYRINGE GAMAL PEN hyperglycem TWICE NEEDLE) 32 ia, with DAILY FOR gauge x long-term INSULIN " current use ADMINISTRA needle of insulin TION ([facility]) blood sugar Yes Type 2 1{strip Q.[id number] Inject 1 [place] diagnostic 2-13 diabetes } [id number] strip Methodi strips 00:00: mellitus 3D under the st (ONETOUCH 00 with skin 3 ULTRA BLUE hyperglycem (three) TEST STRIP) ia, with times a strip test long-term day. strips current use of insulin ([facility]) insulin 2019- No Inject 60 [place] ASPART 1-08 02-17 Units Methodi protamine 00:00: 00:[address] and insulin 00 :00 skin daily ASPART before (NovoLOG breakfast 70/30) 100 AND 40 unit/mL Units (70-30) daily insulin pen before dinner. Do all this for 30 days. levothyroxi 2018-10 Yes Primary 50ug QD Take 1 H rust ne 2-30 hypothyroid tablet (50 Me th[facility] (SYNTHROID) 00:00: ism mcg total) st 50 mcg 00 by mouth tablet every morning for 30 days. atorvastati 2018-10- No 80mg QD Take 1 [place] (LIPITOR) 11-2208 tablet (80 M ethodi 80 MG 00:00: 00:00 mg total) st tablet 00 :00 by mouth daily. SITagliptin 2018-10- No 100mg QD Take 1 [place] (JANUVIA) 11-22-08 tablet Methodi 100 MG 00:00: 00:00 ([address] tablet 00 :00 total) by mouth daily. blood sugar 2018-10- No Type 2 1{strip Q.[id number] Inject 1 [place] diagnostic 2-06 02-13 diabetes } [id number] strip Methodi strips 00:00: 00:00 mellitus 3D under the s t (ONETOUCH 00 :00 with skin 3 ULTRA BLUE hyperglycem (three) TEST STRIP) ia, with times a strip test long-term day. strips current use of insulin ([facility]) insulin 2018-10- Inject 60 [place] ASPART 1-15 01-08 Units Method[facility] protamine 00:00: 00:[address] and insulin 00 :00 skin daily ASPART before (NovoLOG breakfast 70/30) 100 AND 40 unit/mL Units (70-30) daily insulin pen before dinner. Do all this for 90 days. aspirin 2018-10 Yes 81mg QD Take 81 mg [facility] ton (ECOTRIN) 1-13 by mouth Method i 81 MG 13:09: daily. st enteric 11 coated tablet dexlansopra 2018-10 Yes 60mg QD Take 60 mg [place] zole 113 by mouth Methodi (DEXILANT) 13:08: daily. st 60 mg 04 capsule fenofibrate 2018-10- 160mg QD Take 1 sowmya (LOFIBRA) 1-11 05-11 tablet Methodi 160 MG 00:00: 00:00 ([address] tablet 00 :00 total) by mouth daily. amlodipine- 2018-10- Essential 1{tbl} QD Take 1 [place] valsartan 002 04-13 hypertensio tablet by Methodi (EXFORGE) 00:00: 00:[address] 10-160 mg 00 :00 daily. per tablet levothyroxi 2018- Primary 25ug QD Take 1 [place] ne 16 11-15 hypothyroid tablet (25 M ethodi (SYNTHROID, 00:00: 00:00 ism mcg total) st LEVOXYL) 25 00 :00 by mouth mcg tablet every morning. insulin 2018- Type 2 40U Q.5D Inject 40 Ho sow[place] DETEMIR 16 11-15 diabetes Units Method i (LEVEMIR) 00:00: 00:[address] 100 unit/mL 00 :00 with skin 2 (3 mL) hyperglycem (two) insulin pen ia, with times a long-term day for current use 120 days. of insulin ([facility]) insulin 2018- No Type 2 60U QD Inject 60 [place] GLARGINE -14 08-16 diabetes Units Metho di (BASAGLAR 00:00: 00:[address] KWIKPEN 00 :00 with skin U-100 hyperglycem nightly. INSULIN) ia, with 100 unit/mL long-term injection current use (pen) of insulin ([facility]) insulin 2018- No Type 2 60U QD Inject 60 [place] GLARGINE 05-30 08-14 diabetes Units Metho di (BASAGLAR 00:00: 00:[address] KWIKPEN 00 :00 with skin U-100 hyperglycem nightly. INSULIN) ia, with 100 unit/mL long-term injection current use (pen) of insulin ([facility]) levothyroxi 2018- No Primary 50ug QD Take 1 [place] ne 04-13 hypothyroid tablet (50 M ethodi (SYNTHROID, 00:00: 00:00 ism mcg total) st LEVOXYL) 50 00 :00 by mouth mcg tablet every morning for 30 days. insulin 2018- No 50U QD Inject 50 [place] GLARGINE 03-30 08-14 Units Methodi (BASAGLAR 00:00: 00:[address] KWIKPEN 00 :00 skin U-100 nightly. INSULIN) 100 unit/mL injection (pen) atorvastati 2018- No 80mg QD Take 1 [place] (LIPITOR) 03-20 tablet (80 M ethodi 80 MG 00:00: 00:00 mg total) st tablet 00 :00 by mouth daily. sitaGLIPtin 2018- No 100mg QD Take 1 [place] (JANUVIA) 03-20 12- tablet Methodi 100 MG 00:00: 00:00 ([address] tablet 00 :00 total) by mouth daily. ezetimibe 2019- No 10mg QD Take 1 [place] (ZETIA) 10 12-28 tablet (10 Me thodi mg tablet 00:00: 00:00 mg total) st 00 :00 by mouth daily. fenofibrate 2019- No 160mg QD Take 160 [place] nanocrystal 2-14 11-11 mg by Method i lized 160 00:00: 00:[address] mg tablet 00 :00 daily. amlodipine- 2019- No Essential 1{tbl} QD Take 1 [place] valsartan 2-14 - hypertensio tablet by Methodi (EXFORGE) 00:00: 00:[address] 10-160 mg 00 :00 daily. per tablet pen needle, 2019- No Type 2 USE ONE [place] diabetic 11-13- diabetes NEEDLE Meth christian (BD 00:00: 00:[address] ULTRA-FINE 00 :00 with SYRINGE GAMAL PEN hyperglycem TWICE NEEDLE) 32 ia, with DAILY FOR gauge x long-term INSULIN " current use ADMINISTRA needle of insulin TION ([facility]) metoprolol 2017-10 Yes TAKE 1 [place] succinate 2-10 TABLET BY Metho di XL 00:00: MOUTH st (TOPROL-XL) 00 EVERY DAY 50 mg 24 hr tablet blood sugar 2017-10 2019- No Type 2 1{strip Q.69422350 Inject 1 [place] diagnostic 11-22 12- diabetes } [id number] strip Methodi strips 00:00: 00:00 mellitus 3D under the s t (ONETOUCH 00 :00 with skin 3 ULTRA BLUE hyperglycem (three) TEST STRIP) ia, with times a strip test long-term day. strips current use of insulin ([facility]) traMADol Yes 50mg Q6H Take 1 [place] (ULTRAM) 50 7-31 tablet (50 Me thodi mg tablet 00:00: mg total) st 00 by mouth every 6 (six) hours as needed for moderate pain. for pain tamsulosin 2015-10 Yes .4mg QD Take 0.4 [place] (FLOMAX) 1-17 mg by Methodi 0.4 mg 00:00: mouth st capsule,ext 00 nightly. ended release 24hr cetirizine Yes 10mg QD Take 10 mg [place] (ZyrTEC) 10 -08 by mouth Meth christian MG tablet 00:00: once st 00 daily. VITAMIN D2 2019- No TAKE ONE [place] 50,000 unit 04-23 11-15 CAPSULE BY M ethodi capsule 00:00: 00:[address] 00 :00 TWICE PER WEEK. Immunizations Ordered Immunization Filled Immunization Date Status Commen ts Source Name Name FLUZONE HIGH-DOSE PF 2018-05-26 Completed [facility] ton 00:00:00 [facility] Pneumococcal 2017-05-10 Completed Horace Conjugate 13-Valent 00:00:00 Metho dist Vital Signs Vital Name Observation Time Observation Value Comments Source Body height 2020-02-28 10:00:00 170.2 cm Horace Cook Body weight 2020-02-28 10:00:00 116.121 kg Horace Cook BMI 2020-02-28 10:00:00 40.10 kg/m2 Horace Cook Systolic blood 2019-11-29 13:13:00 136 mm[Hg] Radha n [facility] pressure Diastolic blood 2019-11-29 13:13:00 70 mm[Hg] Christina Cook pressure Heart rate 2019-11-29 13:13:00 57 /min Horace Cook Respiratory rate 2019-11-29 13:13:00 20 /min Fred Cook Procedures Procedure Date / Time Performed Performing Clinician Milvia germaine CBC HEMOGRAM 2020-03-01 11:08:00 Jarvis Ford COMPREHENSIVE METABOLIC 2020-03-01 11:08:00 Jarvis Ford PANEL HEMOGLOBIN A1C 2020-03-01 11:08:00 Jarvis Ford LIPID PANEL 2020-03-01 11:08:[address] ORBITS WO CONTRAST 2020-02-05 13:08:00 Olimpia Cat VITAMIN B12 LEVEL 2019-12-01 09:31:00 Jarvis Ford HOMOCYSTINE, PLASMA 2019-12-01 09:31:00 Jarvis Ford CBC HEMOGRAM 2019-12-01 09:31:00 Jarvis Ford COMPREHENSIVE METABOLIC 2019-12-01 09:31:00 Jarvis Ford PANEL HEMOGLOBIN A1C 2019-12-01 09:31:00 Jarvis oFrd LIPID PANEL 2019-12-01 09:31:00 Jarvis Ford THYROID STIMULATING 2019-12-01 09:31:00 Jarvis Ford HORMONE CBC HEMOGRAM 2019-08-30 09:53:00 Jarvis Ford COMPREHENSIVE METABOLIC 2019-08-30 09:53:00 Jarvis Ford PANEL HEMOGLOBIN A1C 2019-08-30 09:53:00 Jarvis Ford LIPID PANEL 2019-08-30 09:53:00 Jarvis Ford T4, FREE 2019-08-30 09:53:00 Jarvis Ford THYROID STIMULATING 2019-08-30 09:53:00 Jarvis Ford HORMONE CBC HEMOGRAM 2019-05-31 07:37:00 Jarvis Ford COMPREHENSIVE METABOLIC 2019-05-31 07:37:00 Jarvis Ford PANEL HEMOGLOBIN A1C 2019-05-31 07:37:00 Jarvis Ford HEMOGLOBIN A1C 2019-05-31 00:00:00 Provider, Historical Horace Cook Plan of Care Planned Activity Planned Date Details Comments Source Future Scheduled 2020-05-17 INFLUENZA VACCINE Fredto n [facility] Test 00:00:00 [code = INFLUENZA VACCINE] Future Scheduled 2018-05-10 65+ PNEUMOCOCCAL Horace [facility] 00:00:00 VACCINE (2 of 2 - PPSV23) [code = 65+ PNEUMOCOCCAL VACCINE (2 of 2 - PPSV23)] Future Scheduled 1997 COLONOSCOPY SCREENING Lopez deng [facility] 00:00:00 [code = COLONOSCOPY SCREENING] Future Scheduled 1997 SHINGLES VACCINES (#1) [place] [facility] 00:00:00 [code = SHINGLES VACCINES (#1)] Future Scheduled 1957 DIABETIC FOOT EXAM [place] [facility] 00:00:00 [code = DIABETIC FOOT EXAM] Future Scheduled 1957 URINE MICROALBUMIN [place] [facility] 00:00:00 [code = URINE MICROALBUMIN] Future Scheduled 1947 DIABETIC RETINAL EYE Nova ankita [facility] Test 00:00:00 EXAM [code = DIABETIC RETINAL EYE EXAM] Encounters Start End Encounter Admission Attending Care Care Encounter Source Date/Time Date/Time Type Type Clinicians Facility Department ID 2020-02-28 2020-02-28 Outpatient ABDIFATAH [facility] [id number] [place] 00:00:00 00:00:00 , JARVIS [address] 2020-02-05 2020-02-05 Outpatient CHUCK [facility] [id number] [place] 00:00:00 00:00:00 OLIMPIA Lomas[address] Results Test Description Test Time Test Comments Results Result Comments Source Comprehensive metabolic panel 2020-03-03 20:21:00 Test Item Value Reference Range Interpretation Comme nts Glucose (test code = 189 mg/dL 65-99 H Fasting 2345-7) reference inter ayan For someone without known diabetes, a glu cosevalue >125 mg/dL jamarcus cates that they may havedi abetes and this should be confirmed with afollow-up test. BUN (test code = 20 mg/dL 05-10 3094-0) Creatinine (test code = 1.01 mg/dL 0.7-1.18 For patients >49 years of 2160-0) age, the refere nce limitfor Creati nine is approximately 1 3% higher for peopleident ified as -Lindsey n. EGFR Non-Afr. Vincentian 74 > OR = 60 (test code = 2775) mL/min/1.73m2 EGFR 86 > OR = 60 (test code = 33620-1) mL/min/1.73m2 BUN/creatinine ratio NOT APPLICABLE (calc) (test code = 3097-3) Sodium (test code = 139 mmol/L 803-711 9909-2) Potassium (test code = 3.9 mmol/L 3.5-5.3 2823-3) Chloride (test code = 103 mmol/L 98-110 2075-0) CO2 (test code = 27 mmol/L 20-32 8-9) Calcium (test code = 9.6 mg/dL 8.6-10.3 47487-3) Protein (test code = 7.3 g/dL 6.1-8.1 2885-2) Albumin, S (test code = 3.9 g/dL 3.6-5.1 1751-7) Globulin, total (test 3.4 1.9- 3.7 g/dL code = 81900-1) (calc) Albumin/globulin ratio 1.1 1.0- 2.5 (test code = 1759-0) (calc) Total bilirubin (test 0.6 mg/dL 0.2-1.2 code = 1974-2) Alkaline phosphatase 63 U/L 35-144 (test code = 6768-6) AST (test code = 44 U/L 10-35 H 1920-8) ALT (test code = 33 U/L 9-46 1742-6) MIKAYLA (test code = MIKAYLA) FASTING:YESFASTING: YES RAC (test code = RAC) Performing Organization Information: Site ID: RGA [facility]: [facility] Address: [address] [place] [address] Director: Denys Carranza Lab Interpretation Abnormal (test code = 79464-7) [place] MethodistLipid [id number] 20:21:00 Test Item Value Reference Interpretation Comments Range Cholesterol, total 122 mg/dL <200 (test code = 2093-3) HDL cholesterol 22 mg/dL > OR = 40 L (test code = 2085-9) Triglycerides (test 202 mg/dL <150 H If a no n-fasting code = 2571-8) specimen was collected, considerrepeat triglyceride testing on a fasting specime nif clinically indicated. Spike guardado et al. J. of Cl in. Lipidol. 2015;9:129-169. LDL cholesterol 71 mg/dL (calc) Reference ra nge: calculated (test <100 Desira ble code = 32234-3) range <100 m g/dL for primary prevention; <7 0 mg/dL for patie nts with CHD or diabetic patien ts with > or = 2 C HD risk factors. L DL-C is now calculat ed using the Mirza-Heredia calculation, wh ich is a validated novel method providing dalton r accuracy than t he Graceald equa tion in the estimati on of LDL-C. Zaira n SS et al. JIE. 2013;310(19): 7196-0363 (http://educati on.Solx .Arantech /faq/XPU845) Cholesterol/HDL 5.5 <5.0 (calc) H ratio (test code = 9830-1) Non-HDL cholesterol 100 <130 mg/dL For martha ents with (test code = (calc) diabetes plus 1 28348-8) major ASCVD ris k factor, treatin g to a non-HDL-C goa l of <100 mg/dL (LDL -C of <70 mg/dL) i s considered a therapeutic opt ion. MIKAYLA (test code = FASTING:YESFASTIN MIKAYLA) G: YES RAC (test code = Performing RAC) Organization Information: Site ID: RGA Name: [facility] Address: [address] [place] [phone] Director: Denys Carranza Lab Interpretation Abnormal (test code = 94979-3) [place] MethodistHemoglobin [id number] 20:21:00 Test Item Value Reference Interpretation Comments Range Hemoglobin A1C (test 7.3 <5.7 % of H For vianney eone without code = 4548-4) total Hgb known diabete s, a hemoglobin A1cv alue of 6.5% or grea ter indicates that they may have diabet es and this should be confirmed with a follow-up test. For someone with kn own diabetes, a ayan ue <7% indicates t hat their diabetes is well controlled and a value greater than or equal t o 7% indicates suboptimal cont rol. A1c targets martinez uld be individualiz ed based on durati on of diabetes, ag e, comorbid conditions, and other considerations. Currently, no consensus exist s regarding use ofhemoglobin A1 c for diagnosis o f diabetes for children. MIKAYLA (test code = FASTING:YESFASTIN MIKAYLA) G: YES RAC (test code = Performing RAC) Organization Information: Site ID: RGA Name: [facility] Address: [address] [place] [id number] Director: Denys Carranza Lab Interpretation Abnormal (test code = 82869-9) [place] [facility] [id number] 20:21:00 Test Item Value Reference Range Interpretation Comments WBC (test code = 5.8 3.8- 10.8 6690-2) Thousand/uL RBC (test code = 789-8) 4.47 4.20- 5.80 Million/uL HGB (test code = 718-7) 12.4 g/dL 13.2-17.1 L HCT (test code = 37.6 % 38.5-50 L 4544-3) MCV (test code = 787-2) 84.1 fL 80-100 MCH (test code = 785-6) 27.7 pg 27-33 MCHC (test code = 33.0 g/dL 32-36 786-4) RDW (test code = 788-0) 14.5 % 11-15 Platelet count (test 148 140- 400 code = 777-3) Thousand/uL MPV (test code = 776-5) 11.1 fL 7.5-12.5 MIKAYLA (test code = MIKAYLA) FASTING:YESFASTING: YES RAC (test code = RAC) Performing Organization Information: Site ID: RGA [facility]: [facility] Address: [address] [place] [phone] Director: Denys Carranza Lab Interpretation Abnormal (test code = 77162-0) [place] MethodistCT Orbits Wo [id number] 13:22:34Hm Interface, Radiology Results 02/05/2020 1:25 PM CDTEXAMINATION: CT ORBITS WO CONTRASTC LINICAL HISTORY: 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 Coronal and sagittal reconstructions were also performed. CT imaging was performed with iterative reconstruction technique and/or automated exposure control to reduce radiation dose.FINDINGS:Prominent orbital fat without significant orbital proptosis. No significant enlargement of the extraocular muscles. Nonspecific fatty infiltration of portions of theextraocular muscles.No evidence of orbital mass, collection, or inflammatory stranding. Unremarkable appearance of the globes, optic nerve sheaths, and lacrimal glands. No mass effect on the optic apparatus or cavernous sinus lesion identified.Mild mucosal thickening of the inferolateral aspect of theleft maxillary sinus. Unerupted maloriented left maxillary tooth. Limited evaluation of the visualized intracranial contents demonstrates no acute abnormality.IMPRESSION:Stable appearance of the orbitscompared with the MRI obtained on 06/28/2018. No significant enlargement of the extraocular muscles to suggest thyroid ophthalmopathy.[id number] MethodistVitamin B12 [id number] 18:42:00 Test Item Value Reference Interpretation Comments Range Vitamin B12 308 pg/mL 200-1100 Please Note: A lthough the (test code = reference range for 2132-06) wdryzekT31 is 2 00-1100 pg/mL, it has b een reported that between5 a nd 10% of patients with v alues between 200 and 400pg/m L may experience neur opsychiatric and hematologic abnormalities due to occult B 12 deficiency; les s than 1%of patients with v alues above 400 pg/mL will have symptoms. MIKAYLA (test FASTING:YESFASTIN code = MIKYALA) G: YES RAC (test Performing code = RAC) Organization Information: Site ID: RGA [facility] Address: [address] [place] [phone] Director: Denys Carranza Vu LondonistThyroid stimulating [id number] 18:42:00 Test Item Value Reference Range Interpretation Comments TSH (test code = 3.49 0.40- 4.50 mIU/L 3016-3) MIKAYLA (test code = FASTING:YESFASTING: YES MIKAYLA) RAC (test code = Performing Organization RAC) Information: Site ID: RGA [facility]: [facility] Address: [address] [place] [phone] Director: Denys CookHomocystine, [id number] 18:42:00 Test Item Value Reference Interpretation Comments Range Homocysteine (test 20.1 umol/L <11.4 H Homocyste ine is code = 55010-7) increased by functional deficiency of folate or vitam in B12. Testing fo r methylmalonic a kira differentiates between these deficiencies. O ther causes of incre ased homocysteine include renal failure, folate antagonists suc h as methotrexate an d phenytoin, and exposure to nit mary carmen oxide.Elfego Davis, et al., Laurie Cooker Helper Med. 1999;131(5):331 -9. MIKAYLA (test code = FASTING:YESFASTIN MIKAYLA) G: YES RAC (test code = Performing RAC) Organization Information: Site ID: IG Name: [facility] Address: [address] [place] [address] Director: Dr. Denys Carranza Lab Interpretation Abnormal (test code = 82000-2) Horace CookAnnika, [id number] 01:27:00 Test Item Value Reference Range Interpretation Comments T4, free (test code 1.2 ng/dL 0.8-1.8 = 3024-7) MIKAYLA (test code = FASTING:YESFASTING: YES MIKAYLA) RAC (test code = Performing Organization RAC) Information: Site ID: RGA [facility]: [facility] Address: [address] [place] [phone] Director: Denys Carranza [place] [facility]
[2020-05-20] MEDS ORDERED: LIDOCAINE 1% W/EPI 1:100,000 MDV 20 ML VIAL ONE (15:49)
--- NOTE | 2020-05-20 16:09 | ER ---
Nurse's Notes [facility] Name: Abundio Cruz Age: 75 yrs Sex: Male : 1945 Arrival Date: 05/20/2020 Time: 15:29 Bed 15 Private MD: Diagnosis: Laceration without foreign body of right hand-middle finger;Laceration without foreign body of right middle finger with damage to nail Presentation: 05/20 15:31 Chief complaint: Patient states: "I was slicing up a tomato and I cut my finger". aa5 Laceration noted to right middle finger involving the fingernail, moderate bleeding noted, pressure applied pressure to site and bleeding controlled. 15:31 Acuity: LUISA 4 aa5 15:31 Coronavirus screen: Client denies travel out of the [place] in the last 14 days. At this aa5 time, the client does not indicate any symptoms associated with coronavirus-19. 15:31 Method Of Arrival: Ambulatory aa5 15:31 Ebola Screen: Patient negative for fever greater than or equal to 101.5 degrees aa5 Fahrenheit, and additional compatible Ebola Virus Disease symptoms. Complicating Factors: There are no complicating factors for this patient. Initial Sepsis Screen: Does the patient meet any 2 criteria? No. Patient's initial sepsis screen is negative. Does the patient have a suspected source of infection? No. Patient's initial sepsis screen is negative. Risk Assessment: Do you want to hurt yourself or someone else? Patient reports no desire to harm self or others. Onset of symptoms was May 2020. Triage Assessment: 15:31 General: Appears in no apparent distress. obese, well groomed, Behavior is calm, tw2 cooperative, appropriate for age. Pain: Complains of pain in right middle fingernail and palmar aspect of distal phalanx of right middle finger. Injury Description: Laceration sustained to palmar aspect of distal phalanx of right middle finger. Historical: - Allergies: 15:31 No Known Allergies; aa5 - PMHx: 15:31 Atrial Fib; COPD; Diabetes - NIDDM; GERD; High Cholesterol; Hyperlipidemia; aa5 Hypertension; - Immunization history:: Last tetanus immunization: unknown. - Family history:: not pertinent. - Social history:: Smoking status: Patient denies any tobacco usage or history of. Screenin:57 Abuse screen: Denies threats or abuse. Nutritional screening: No deficits noted. tw2 Tuberculosis screening: No symptoms or risk factors identified. Fall Risk None identified. Assessment: 17:00 General: Appears in no apparent distress. obese, well groomed, Behavior is calm, tw2 cooperative, appropriate for age. Neuro: Level of Consciousness is awake, alert, obeys commands, Oriented to person, place, time, situation. Respiratory: Airway is patent Respiratory effort is even, unlabored, Respiratory pattern is regular, symmetrical. GI: Abdomen is round obese. Musculoskeletal: Circulation, motion, and sensation intact. Range of motion: intact in all extremities. Injury Description: Laceration sustained to palmar aspect of distal phalanx of right middle finger and right middle fingernail is jagged, 0.5 to 2.5 cm long, not bleeding. 17:57 Reassessment: Patient appears in no apparent distress at this time. No changes from tw2 previously documented assessment. Patient and/or family updated on plan of care and expected duration. Pain level reassessed. Patient is alert, oriented x 3, equal unlabored respirations, skin warm/dry/pink. Vital Signs: 15:31 BP 138 / 58; Pulse 60; Resp 18 S; Temp 98.5(O); Pulse Ox 98% on R/A; aa5 17:00 BP 139 / 55; Pulse 59; Resp 17; Pulse Ox 95% on R/A; tw2 17:56 BP 135 / 57; Pulse 59; Resp 17; Pulse Ox 99% on R/A; tw2 ED Course: 15:29 Patient arrived in ED. ds1 15:31 Arm band placed on Patient placed in an exam room, on a stretcher. aa5 15:32 Yang Rivera MD is Attending Physician. scotty 15:32 Bed in low position. Call light in reach. tw2 15:40 Rodrigo Tejeda RN is Primary Nurse. jl7 15:58 Triage completed. aa5 16:04 Denys Mueller MD is Referral Physician. scotty 17:55 Awaiting: delay of discharge d/t critical care of other pts in ER at the same time. tw2 17:58 No provider procedures requiring assistance completed. Patient did not have IV access tw2 during this emergency room visit. 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 Exp: tw12/06/2022. Lot #: [id number]. } Route: IM; Site: right deltoid; 16:41 Follow up: Response: No adverse reaction tw2 16:31 Not Given (lidocaine with epinephrine ordered verbally per Dr. Rivera): Lidocaine (1 tw2 %) 6 ml 20 ml Infiltration once; to bedside 16:31 Drug: Lidocaine-Epinephrine -1%: (1:100,000) 20 ml {Note: by Dr. Rivera.} Volume: 20 tw2 ml; Route: Infiltration; 17:53 Drug: Neosporin Ointment 1 application Route: Topical; Site: wound; tw2 Outcome: 16:09 Discharge ordered by MD. fajardo 17:57 Discharged to home ambulatory. tw2 17:57 Condition: stable 17:57 Discharge instructions given to patient, Instructed on discharge instructions, follow up and referral plans. no drinking with medication, no driving heavy equipment, medication usage, Demonstrated understanding of instructions, follow-up care, medications, Prescriptions given X 2. 17:58 Patient left the ED. tw2 Signatures: Yang Rivera MD MD cha Sanford, Demi ds1 Lesvia Colby, RN RN aa5 Marisela Melgoza RN RN tw2 Rodrigo Tejeda RN RN jl7
--- NOTE | 2020-05-20 16:09 | EDPHYS ---
Physician Documentation [facility] Name: Abundio Cruz Age: 75 yrs Sex: Male : 1945 Arrival Date: 05/20/2020 Time: 15:29 Bed 15 Private MD: ED Physician Yang Rivera HPI: 05/20 15:59 This 75 yrs old Male presents to ER via Ambulatory with complaints of scotty Laceration - to Finger. 15:59 The patient or guardian reports decreased range of motion, a laceration, clean, 1 scotty cm(s), pain, tenderness. The complaints affect the right hand diffusely. Context: The problem was sustained at home. Onset: The symptoms/episode began/occurred just prior to arrival. Modifying factors: The symptoms are alleviated by elevation, holding still, the symptoms are aggravated by movement, dependent position. Associated signs and symptoms: The patient has no apparent associated signs or symptoms. Severity of symptoms: At their worst the symptoms were mild, in the emergency department the symptoms are unchanged. The patient has not experienced similar symptoms in the past. Historical: - Allergies: 15:31 No Known Allergies; aa5 - PMHx: 15:31 Atrial Fib; COPD; Diabetes - NIDDM; GERD; High Cholesterol; Hyperlipidemia; aa5 Hypertension; - Immunization history:: Last tetanus immunization: unknown. - Family history:: not pertinent. - Social history:: Smoking status: Patient denies any tobacco usage or history of. ROS: 15:59 Constitutional: Negative for fever, chills, and weight loss, Eyes: Negative for injury, scotty pain, redness, and discharge, ENT: Negative for injury, pain, and discharge, Neck: Negative for injury, pain, and swelling, Cardiovascular: Negative for chest pain, palpitations, and edema, Respiratory: Negative for shortness of breath, cough, wheezing, and pleuritic chest pain, Abdomen/GI: Negative for abdominal pain, nausea, vomiting, diarrhea, and constipation, Back: Negative for injury and pain, : Negative for injury, bleeding, discharge, and swelling, Skin: Negative for injury, rash, and discoloration, Neuro: Negative for headache, weakness, numbness, tingling, and seizure, Psych: Negative for depression, anxiety, suicide ideation, homicidal ideation, and hallucinations, Allergy/Immunology: Negative for hives, rash, and allergies, Endocrine: Negative for neck swelling, polydipsia, polyuria, polyphagia, and marked weight changes, Hematologic/Lymphatic: Negative for swollen nodes, abnormal bleeding, and unusual bruising. 15:59 MS/extremity: Positive for decreased range of motion, laceration, pain, of the palmar aspect of distal phalanx of right middle finger and right middle fingernail. Exam: 15:59 Constitutional: This is a well developed, well nourished patient who is awake, alert, scotty and in no acute distress. Head/Face: Normocephalic, atraumatic. Eyes: Pupils equal round and reactive to light, extra-ocular motions intact. Lids and lashes normal. Conjunctiva and sclera are non-icteric and not injected. Cornea within normal limits. Periorbital areas with no swelling, redness, or edema. ENT: Nares patent. No nasal discharge, no septal abnormalities noted. Tympanic membranes are normal and external auditory canals are clear. Oropharynx with no redness, swelling, or masses, exudates, or evidence of obstruction, uvula midline. Mucous membranes moist. Neck: Trachea midline, no thyromegaly or masses palpated, and no cervical lymphadenopathy. Supple, full range of motion without nuchal rigidity, or vertebral point tenderness. No Meningismus. Chest/axilla: Normal chest wall appearance and motion. Nontender with no deformity. No lesions are appreciated. Cardiovascular: Regular rate and rhythm with a normal S1 and S2. No gallops, murmurs, or rubs. Normal PMI, no JVD. No pulse deficits. Respiratory: Lungs have equal breath sounds bilaterally, clear to auscultation and percussion. No rales, rhonchi or wheezes noted. No increased work of breathing, no retractions or nasal flaring. Abdomen/GI: Soft, non-tender, with normal bowel sounds. No distension or tympany. No guarding or rebound. No evidence of tenderness throughout. Back: No spinal tenderness. No costovertebral tenderness. Full range of motion. Male : Normal genitalia with no discharge or lesions. MS/ Extremity: Pulses equal, no cyanosis. Neurovascular intact. Full, normal range of motion. Neuro: Awake and alert, GCS 15, oriented to person, place, time, and situation. Cranial nerves II-XII grossly intact. Motor strength 5/5 in all extremities. Sensory grossly intact. Cerebellar exam normal. Normal gait. Psych: Awake, alert, with orientation to person, place and time. Behavior, mood, and affect are within normal limits. 15:59 Skin: injury, laceration(s), the wound is approximately 1 cm(s), with a depth of .25 cm(s), of the right middle fingernail and palmar aspect of distal phalanx of right middle finger. Vital Signs: 15:31 BP 138 / 58; Pulse 60; Resp 18 S; Temp 98.5(O); Pulse Ox 98% on R/A; aa5 17:00 BP 139 / 55; Pulse 59; Resp 17; Pulse Ox 95% on R/A; tw2 17:56 BP 135 / 57; Pulse 59; Resp 17; Pulse Ox 99% on R/A; tw2 Laceration: 15:59 Wound Repair of 1cm ( 0.4in ) subcutaneous laceration to right middle fingernail and scotty palmar aspect of distal phalanx of right middle finger. Distal neuro/vascular/tendon intact. Anesthesia: Local anesthetic administered with 4 mls of 1% lidocaine. Wound prep: Simple cleansing by me. Skin closed with 3 5-0 Prolene using interrupted sutures and sterile technique. Dressed with Bacitracin. Patient tolerated well. MDM: 15:32 Patient medically screened. scotty 16:03 Data reviewed: vital signs, nurses notes. scotty 16:10 Differential diagnosis: open fracture. 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 rate is 60 beats/min, Pulse oximetry: on room air is 98 %. Counseling: I had a detailed discussion with the patient and/or guardian regarding: the historical points, exam findings, and any diagnostic results supporting the discharge/admit diagnosis, lab results, the need for outpatient follow up, for definitive care, a hand specialist. ED course: pt discussed plan of follow up, hand surgeon dr steffanie barron/ mary lou. 05/20 15:54 Order name: Prolene, Sutures; Complete Time: 16:01 [facility] 05/20 15:54 Order name: Dressing - Wound; Complete Time: 17:54 [facility] 05/20 15:54 Order name: Gloves, Sterile; Complete Time: 16:01 [facility] 05/20 15:54 Order name: Setup Suture Tray; Complete Time: 16:01 [facility] 05/20 15:54 Order name: Wound dressing; Complete Time: 17:54 [facility] Administered Medications: 16:12 Drug: KeFLEX 500 mg Route: PO; jl7 16:28 Follow up: Response: No adverse reaction tw2 16:27 Drug: Tetanus-Diphtheria Toxoid Adult 0.5 ml {[employer]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 Exp: tw2 12/06/2022. Lot #: [id number]. } Route: IM; Site: right deltoid; 16:41 Follow up: Response: No adverse reaction tw2 16:31 Not Given (lidocaine with epinephrine ordered verbally per Dr. Rivera): Lidocaine (1 tw2 %) 6 ml 20 ml Infiltration once; to bedside 16:31 Drug: Lidocaine-Epinephrine -1%: (1:100,000) 20 ml {Note: by Dr. Rivera.} Volume: 20 tw2 ml; Route: Infiltration; 17:53 Drug: Neosporin Ointment 1 application Route: Topical; Site: wound; tw Disposition: 05/20/20 16:09 Discharged to Home. Impression: Laceration without foreign body of right hand - middle finger, Laceration without foreign body of right middle finger with damage to nail. - Condition is Stable. - Discharge Instructions: Laceration Care, Adult, Nail Bed Injury, Laceration Care, Adult, [id number], Nail Bed Laceration, Nail Bed Injury, [id number]. - Prescriptions for Keflex 500 mg Oral Capsule - take 1 capsule by ORAL route every 6 hours for 7 days; 28 capsule. Tylenol- Codeine #3 300-30 mg Oral Tablet - take 2 tablets by ORAL route every 6 hours As needed; 20 tablet. - Medication Reconciliation Form, Thank You Letter, Antibiotic Education, Prescription Opioid Use form. - Follow up: Private Physician; When: 2 - 3 days; Reason: Recheck today's complaints, Continuance of care, Re-evaluation by your physician. Follow up: Denys Mueller MD; When: 2 - 3 days; Reason: Recheck today's complaints, Continuance of care, Re-evaluation by your physician. - Problem is new. - Symptoms have improved. Signatures: Yang Rivera MD MD cha Calderon, Audri, RN RN aa5 Marisela Melgoza RN RN tw2 Rodrigo Tejeda RN RN jl7 Corrections: (The following items were deleted from the chart) 17:58 16:09 05/20/2020 16:09 Discharged to Home. Impression: Laceration without foreign body tw2 of right hand - middle finger; Laceration without foreign body of right middle finger with damage to nail. Condition is Stable. Forms are Medication Reconciliation Form, Thank You Letter, Antibiotic Education, Prescription Opioid Use. Follow up: Private Physician; When: 2 - 3 days; Reason: Recheck today's complaints, Continuance of care, Re-evaluation by your physician. Follow up: Denys Mueller; When: 2 - 3 days; Reason: Recheck today's complaints, Continuance of care, Re-evaluation by your physician. Problem is new. Symptoms have improved. scotty
[2020-05-20] MEDS ORDERED: CEPHALEXIN 250 MG CAP ONE (16:14)
[2020-05-20] MEDS ORDERED: TETANUS & DIPHTHERIA TOX,ADULT 0.5 ML VIAL ONE (16:34)
== END 2020-05-20 17:58 | disposition home or self-care (01) ==
LOC: ER 15:28
PROC: 0JQJ0ZZ Repair Right Hand Subcutaneous Tissue and Fascia, Open Approach (ICD-10-PCS; principal; 2020-05-20)
DX: S61.312A Laceration without foreign body of right middle finger with damage to nail, initial encounter (principal); I10 Essential (primary) hypertension; W26.0XXA Contact with knife, initial encounter; Y93.G1 Activity, food preparation and clean up; Y92.009 Unspecified place in unspecified non-institutional (private) residence as the place of occurrence of the external cause; Z23 Encounter for immunization
CPT/HCPCS: 90471; 90714; 99283

== ENCOUNTER 2025-08-14 19:37 | Observation (INO) | payer OTHER ==
[2025-08-14] MEDS ORDERED: ONDANSETRON 4 MG/2 ML VIAL ONE (21:03)
[2025-08-14] MEDS ORDERED: MECLIZINE HCL 12.5 MG TAB ONE (21:03)
[2025-08-14 21:07] LABS: Sqamous Epithelial <5 /HPF (None Seen); Urine Culture Reflex Order NOT NEEDED; Urine Microscopic Reflex YN ORDER UMIC
[2025-08-14 21:13] LABS: Absolute Lymphocytes (CBC) 1.0 K/uL (0.7-4.9); Hematocrit 35.7 % (39.6-49.0); Hemoglobin 11.7 g/dL (13.6-17.9); MCH 27.5 pg (27.0-35.0); MCHC 32.8 g/dL (32.0-36.0); MCV 83.9 fL (80-100); MPV 8.2 fL (7.6-11.3); Nucleated RBC Absolute Count 0.0 (0-0); Nucleated Red Blood Cells % 0.0 % (0-0); RBC Red Blood Cell Count 4.26 M/uL (4.33-5.43); White Blood Count 6.40 thou/uL (4.3-10.9)
--- NOTE | 2025-08-14 21:13 | RAD REPORT ---
EXAMINATION: ONE VIEW CHEST XR CLINICAL INDICATION: Male, 80 years old.,dizziness TECHNIQUE: Frontal chest projection is submitted. Examination is limited by patient positioning and t echnique. COMPARISON: 05/01/2025 FINDINGS: The lungs are grossly clear although suboptimal inspiratory effort somewhat limits evaluation. No pn eumothorax or sizable effusion. The heart is normal in size. Mediastinal contours are unremarkable. IMPRESSION: No acute intrathoracic abnormalities.
[2025-08-14 21:14] LABS: PT Prothrombin Time 13.5 SECONDS (10-13.0); PTT, Activated Partial Thromb 27.4 SECONDS (27.2-37.4); Protime INR 1.2
[2025-08-14 21:25] LABS: ALT/SGPT 38 U/L (16-61); AST/SGOT 46 U/L (15-37); Albumin 3.3 g/dL (3.4-5.0); Albumin/Globulin Ratio 0.7 (1.1-1.8); Alkaline Phosphatase 54 U/L (45-117); Anion Gap 8.3 mEq/L (5.0-15.0); BUN Blood Urea Nitrogen 25 mg/dL (7-18); Bilirubin Indirect, Calculated 0.3 mg/dL (0.2-0.8); Globulin 4.6 g/dL (2.3-3.5); Glucose Level 101 mg/dL (74-106); Magnesium 1.7 mg/dL (1.6-2.4); Potassium 4.3 mEq/L (3.5-5.1); Troponin High Sensitivity 8.4 pg/mL (<58.9)
--- NOTE | 2025-08-14 23:53 | RAD REPORT ---
EXAM: Head Brain Wo Cont (accession [id number]), Head angio (accession [id number]), Neck Angio (accession [id number]) CLINICAL INDICATION: 80-year-old male with dizziness. COMPARISON: None. TECHNIQUE: CT brain without contrast. CT angiography of the head and neck following dynamic bolus of intravenous contrast. MIP reformatted reconstructions were created. This exam was performed according to our departmental dose optimization program which includes use of automated exposure control, adjustment of the mA and/or kV according to patient size and/or use of iterative reconstruction technique. FINDINGS: CTA neck: Partially calcified atheromatous plaque of the bilateral internal carotid arteries where the left gre ater than right narrowing without stenosis by NASCET criteria. Medialization of the bilateral common carotid arteries. Patent flow opacification of the aortic arch origin right brachiocephalic, left common carotid, and l eft subclavian arteries. The bilateral vertebral artery origins are normal. Patent flow opacification through the bilateral common carotid arteries, carotid bifurcations, cervic al internal/external carotid, and vertebral arteries. CTA brain: Patent flow opacification through anterior circulation (bilateral petrous/cavernous/supraclinoid inte rnal carotid arteries, anterior and middle cerebral arteries), posterior circulation (vertebral-basilar, posterior-inferior cerebellar, anterior-inferior cerebellar, superior cerebellar, and posterior cerebral arteries), and distal intracranial vasculature. Patent flow opacification through an incomplete [id number] with a patent anterior communicating artery and absent posterior communicating arteries. 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 Normal superficial and deep intracranial venous drainage. No evidence of occlusive thrombus, dissection, or vascular malformation. CT brain noncontrast: Minimal foci of patchy hypoattenuation are present in a subcortical and periventricular deep white ma tter distribution, nonspecific; however, most likely represent small vessel ischemic disease, age indeterminate. The ventricles, sulci, and cisterns are symmetric and unremarkable. The ortega-white matter different iation is preserved. There is no mass effect, midline shift, intra- or extra-axial fluid collection/acute hemorrhage. The osseous structures are unremarkable. Opacification of the bilatera l sphenoid sinuses. Polyp or retention cyst within the left maxillary sinus. The remaining paranasal sinuses and mastoid air cells are clear. Additional findings: Posterior osseous spurring and disc bulge results in moderate to severe central spinal canal narrowing at C5-6 vertebral level. IMPRESSION: 1. No acute intracranial abnormalities. Nonspecific white matter change most likely small vessel is chemic disease, age indeterminate. 2. If there is clinical concern for acute ischemia, an MRI may be considered. 3. Patent enhancement of the intracranial circulation. 4. Partially calcified atheromatous plaque with otherwise patent enhancement of the cervical vascul ature with narrowing without without stenosis by NASCET criteria. 5. Posterior osseous spurring and disc bulge results in moderate to severe central spinal canal ana rowing at C5-6 vertebral level. Electronically signed by: Lintete Lemus MD 08/14/2025 11:50 PM CDT RP Due to temporary technical issues with the PACS/[employer] reporting system, reports are being oj d by the in-house radiologist without review as a courtesy to ensure prompt reporting the interpreting radiologist is fully responsible for the content of the report. Transcribed Date/Time: 08/14/2025 11:53 PM
--- NOTE | 2025-08-14 23:54 | RAD REPORT ---
EXAM: Head Brain Wo Cont (accession [id number]), Head angio (accession [id number]), Neck Angio (accession [id number]) CLINICAL INDICATION: 80-year-old male with dizziness. COMPARISON: None. TECHNIQUE: CT brain without contrast. CT angiography of the head and neck following dynamic bolus of intravenous contrast. MIP reformatted reconstructions were created. This exam was performed according to our departmental dose optimization program which includes use of automated exposure control, adjustment of the mA and/or kV according to patient size and/or use of iterative reconstruction technique. FINDINGS: CTA neck: Partially calcified atheromatous plaque of the bilateral internal carotid arteries where the left gre ater than right narrowing without stenosis by NASCET criteria. Medialization of the bilateral common carotid arteries. Patent flow opacification of the aortic arch origin right brachiocephalic, left common carotid, and l eft subclavian arteries. The bilateral vertebral artery origins are normal. Patent flow opacification through the bilateral common carotid arteries, carotid bifurcations, cervic al internal/external carotid, and vertebral arteries. CTA brain: Patent flow opacification through anterior circulation (bilateral petrous/cavernous/supraclinoid inte rnal carotid arteries, anterior and middle cerebral arteries), posterior circulation (vertebral-basilar, posterior-inferior cerebellar, anterior-inferior cerebellar, superior cerebellar, and posterior cerebral arteries), and distal intracranial vasculature. Patent flow opacification through an incomplete mofyir-ag-Kwmisv with a patent anterior communicating artery and absent posterior communicating arteries. 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 Normal superficial and deep intracranial venous drainage. No evidence of occlusive thrombus, dissection, or vascular malformation. CT brain noncontrast: Minimal foci of patchy hypoattenuation are present in a subcortical and periventricular deep white ma tter distribution, nonspecific; however, most likely represent small vessel ischemic disease, age indeterminate. The ventricles, sulci, and cisterns are symmetric and unremarkable. The ortega-white matter different iation is preserved. There is no mass effect, midline shift, intra- or extra-axial fluid collection/acute hemorrhage. The osseous structures are unremarkable. Opacification of the bilatera l sphenoid sinuses. Polyp or retention cyst within the left maxillary sinus. The remaining paranasal sinuses and mastoid air cells are clear. Additional findings: Posterior osseous spurring and disc bulge results in moderate to severe central spinal canal narrowing at C5-6 vertebral level. IMPRESSION: 1. No acute intracranial abnormalities. Nonspecific white matter change most likely small vessel is chemic disease, age indeterminate. 2. If there is clinical concern for acute ischemia, an MRI may be considered. 3. Patent enhancement of the intracranial circulation. 4. Partially calcified atheromatous plaque with otherwise patent enhancement of the cervical vascul ature with narrowing without without stenosis by NASCET criteria. 5. Posterior osseous spurring and disc bulge results in moderate to severe central spinal canal ana rowing at C5-6 vertebral level. Electronically signed by: Linette Lemus MD 08/14/2025 11:50 PM CDT RP Due to temporary technical issues with the PACS/[employer] reporting system, reports are being oj d by the in-house radiologist without review as a courtesy to ensure prompt reporting the interpreting radiologist is fully responsible for the content of the report. Transcribed Date/Time: 08/14/2025 11:53 PM
--- NOTE | 2025-08-14 23:54 | RAD REPORT ---
EXAM: Head Brain Wo Cont (accession [id number]), Head angio (accession [id number]), Neck Angio (accession [id number]) CLINICAL INDICATION: 80-year-old male with dizziness. COMPARISON: None. TECHNIQUE: CT brain without contrast. CT angiography of the head and neck following dynamic bolus of intravenous contrast. MIP reformatted reconstructions were created. This exam was performed according to our departmental dose optimization program which includes use of automated exposure control, adjustment of the mA and/or kV according to patient size and/or use of iterative reconstruction technique. FINDINGS: CTA neck: Partially calcified atheromatous plaque of the bilateral internal carotid arteries where the left gre ater than right narrowing without stenosis by NASCET criteria. Medialization of the bilateral common carotid arteries. Patent flow opacification of the aortic arch origin right brachiocephalic, left common carotid, and l eft subclavian arteries. The bilateral vertebral artery origins are normal. Patent flow opacification through the bilateral common carotid arteries, carotid bifurcations, cervic al internal/external carotid, and vertebral arteries. CTA brain: Patent flow opacification through anterior circulation (bilateral petrous/cavernous/supraclinoid inte rnal carotid arteries, anterior and middle cerebral arteries), posterior circulation (vertebral-basilar, posterior-inferior cerebellar, anterior-inferior cerebellar, superior cerebellar, and posterior cerebral arteries), and distal intracranial vasculature. Patent flow opacification through an incomplete [id number] with a patent anterior communicating artery and absent posterior communicating arteries. Right origin QUOTATION CLERK. Normal superficial and deep intracranial venous drainage. No evidence of occlusive thrombus, dissection, or vascular malformation. CT brain noncontrast: Minimal foci of patchy hypoattenuation are present in a subcortical and periventricular deep white ma tter distribution, nonspecific; however, most likely represent small vessel ischemic disease, age indeterminate. The ventricles, sulci, and cisterns are symmetric and unremarkable. The ortega-white matter different iation is preserved. There is no mass effect, midline shift, intra- or extra-axial fluid collection/acute hemorrhage. The osseous structures are unremarkable. Opacification of the bilatera l sphenoid sinuses. Polyp or retention cyst within the left maxillary sinus. The remaining paranasal sinuses and mastoid air cells are clear. Additional findings: Posterior osseous spurring and disc bulge results in moderate to severe central spinal canal narrowing at C5-6 vertebral level. IMPRESSION: 1. No acute intracranial abnormalities. Nonspecific white matter change most likely small vessel is chemic disease, age indeterminate. 2. If there is clinical concern for acute ischemia, an MRI may be considered. 3. Patent enhancement of the intracranial circulation. 4. Partially calcified atheromatous plaque with otherwise patent enhancement of the cervical vascul ature with narrowing without without stenosis by NASCET criteria. 5. Posterior osseous spurring and disc bulge results in moderate to severe central spinal canal ana rowing at C5-6 vertebral level. Electronically signed by: Linette Lemus MD 08/14/2025 11:50 PM CDT RP Due to temporary technical issues with the [employer] reporting system, reports are being oj d by the in-house radiologist without review as a courtesy to ensure prompt reporting the interpreting radiologist is fully responsible for the content of the report. Transcribed Date/Time: 08/14/2025 11:54 PM
--- NOTE | 2025-08-15 00:07 | ER ---
[facility] Name: Abundio Cruz Age: 80 yrs Sex: Male : 1945 Arrival Date: 08/14/2025 Time: 19:37 Bed 20 Private MD: Diagnosis: Dizziness and giddiness Presentation: 08/14 19:58 Chief complaint: Patient states: dizziness started at 1400 today while at dentist 2 office. Coronavirus screen: Client denies travel out of the [place] in the last 14 days. Ebola Screen: No symptoms or risks identified at this time. Initial Sepsis Screen: Does the patient meet any 2 criteria? No. Patient's initial sepsis screen is negative. Does the patient have a suspected source of infection? No. Patient's initial sepsis screen is negative. Risk Assessment: Do you want to hurt yourself or someone else? Patient reports no desire to harm self or others. 19:58 Method Of Arrival: Ambulatory [facility] 19:58 Acuity: LUISA 3 2 20:00 Onset of symptoms was August 14, 2025. 2 Triage Assessment: 20:03 General: Appears in no apparent distress. Behavior is calm, cooperative. Pain: Denies kj2 pain. Neuro: Level of Consciousness is awake, alert, obeys commands, Oriented to person, place, time, situation. Cardiovascular: Patient's skin is warm and dry. Respiratory: Airway is patent Respiratory effort is even, unlabored. GI: No signs and/or symptoms were reported involving the gastrointestinal system. : No signs and/or symptoms were reported regarding the genitourinary system. Historical: - Allergies: 20:03 Hydrocodone-Acetaminophen; kj2 - PMHx: 20:03 Atrial Fib; COPD; Diabetes - NIDDM; GERD; High Cholesterol; Hyperlipidemia; kj2 Hypertension; - PSHx: 20:03 Heart ablation; loop recorder-non functional (ab); kj2 - Immunization history:: Adult Immunizations unknown. - Infectious Disease History:: Denies. - Social history:: Smoking status: unknown. Screenin:10 [facility] ED Fall Risk Assessment (Adult) History of falling in the last 3 months, kj2 including since admission No falls in past 3 months (0 pts) Confusion or Disorientation No (0 pts) Intoxicated or Sedated No (0 pts) Impaired Gait No (0 pts) Mobility Assist Device Used No (0 pt) Altered Elimination No (0 pt) Score/Fall Risk Level 0 - 2 = Low Risk Maintained a safe environment, Hourly rounding (assess needs \T\ fall precautionary measures) done. Abuse screen: Denies threats or abuse. Denies injuries from another. Nutritional screening: No deficits noted. Tuberculosis screening: No symptoms or risk factors identified. Assessment: 20:05 General: see triage assessment. kj2 21:00 Reassessment: Patient appears in no apparent distress at this time. Patient and/or kj2 family updated on plan of care and expected duration. Pain level reassessed. Patient is alert, oriented x 3, equal unlabored respirations, skin warm/dry/pink. 22:00 Reassessment: Patient appears in no apparent distress at this time. Patient and/or kj2 family updated on plan of care and expected duration. Pain level reassessed. Patient is alert, oriented x 3, equal unlabored respirations, skin warm/dry/pink. 23:00 Reassessment: Patient appears in no apparent distress at this time. Patient and/or kj2 family updated on plan of care and expected duration. Pain level reassessed. Patient is alert, oriented x 3, equal unlabored respirations, skin warm/dry/pink. 08/15 00:00 Reassessment: Patient appears in no apparent distress at this time. Patient and/or kj2 family updated on plan of care and expected duration. Pain level reassessed. Patient is alert, oriented x 3, equal unlabored respirations, skin warm/dry/pink. 00:01 Reassessment: Patient appears in no apparent distress at this time. Patient and/or kj2 family updated on plan of care and expected duration. Pain level reassessed. 01:30 Reassessment: ASSUMED CARE OF PT. PT SLEEPING. NO DISTRESS NOTED. VS STABLE. IV FLUIDS jj7 STILL INFUSING. CALL PRITCHETT IN REACH. General: Appears in no apparent distress. comfortable. 02:20 Reassessment: Patient is alert, oriented x 3, equal unlabored respirations, skin jj7 warm/dry/pink. Patient states feeling better. Patient states symptoms have improved. General: Appears in no apparent distress. comfortable, Behavior is calm, cooperative, appropriate for age. Vital Signs: 08/14 19:58 BP 131 / 68; Pulse 61; Resp 18; Temp 98.6; Pulse Ox 97% ; Weight 125.19 kg; Height 5 kj2 ft. 7 in. ; 21:00 BP 152 / 61; Pulse 70; Resp 20; Pulse Ox 100% on R/A; kj2 22:00 BP 142 / 59; Pulse 55; Resp 18; Pulse Ox 100% on R/A; kj2 08/15 00:01 BP 158 / 70; Pulse 58; Resp 20; Pulse Ox 100% ; kj2 01:57 BP 157 / 55; Pulse 77; Resp 16; Temp 98.1; Pulse Ox 96% ; jj7 08/14 19:58 Body Mass Index 43.23 (125.19 kg, 170.18 cm) kj2 NIH Stroke Scale Scores: 08/14 20:12 NIHSS Score: 0 cp ED Course: 19:41 Patient arrived in ED. gm2 19:52 Yang Jimenes PA-C [facility]. cp 19:52 Raj Cisneros MD is Attending Physician. cp 19:58 Barbra Azul, THONG is Primary Nurse. kj2 20:02 Triage completed. kj2 20:10 Patient has correct armband on for positive identification. Bed in low position. Call kj2 light in reach. Adult w/ patient. Provided Education on: call light. 20:58 Initial lab(s) drawn, by cheesemaking laborer, sent to lab. Inserted saline lock: 20 gauge in left ts3 antecubital area, using aseptic technique. Blood collected. Flushed with 10 mL NS. 20:58 Urine collected: clean catch specimen, sent to lab. ts3 21:07 Stroke CXR 1 View In Process Unspecified. EDMS 21:10 EKG done, by sleep lab technician. reviewed by Yang Jimenes PA-C. ts3 21:57 CT Head Angio In Process Unspecified. EDMS 21:57 CT Neck Angio In Process Unspecified. EDMS 21:57 CT Head Brain wo Cont In Process Unspecified. EDMS 08/15 00:05 Carlitos Sierra, RN is Hospitalizing Provider. cp 01:32 IV discontinued, intact, bleeding controlled, Pressure dressing applied, 20G TO LAC jj7 REMOVED AFTER INFILTRATING WITH IV CONTRAST. 01:47 No provider procedures requiring assistance completed. Inserted saline lock: 22 gauge jj7 in right forearm, using aseptic technique. ,using aseptic technique. INSERTED BY CT. Administered Medications: 08/14 21:09 Drug: Meclizine PO 25 mg PO once Route: PO; kj2 08/15 00:02 Follow up: Response: No adverse reaction kj2 08/14 21:09 Drug: Ondansetron IVP 4 mg IVP once; over 2 minutes Route: IVP; Site: left antecubital; kj2 08/15 00:02 Follow up: Response: No adverse reaction kj2 Medication: 08/14 21:13 VIS not applicable for this client. kj2 Outcome: 08/15 00:06 Decision to Hospitalize by Provider. cp 02:20 Admitted to Med/surg accompanied by tech, via stretcher, room 220, Report called to [facility] TUBED TO 2ND FLOOR. LAYLA RECEIVED 02:20 Condition: improved 02:26 Patient left the ED. [facility] NIH Stroke Scale - NIH Stroke Score Date: 08/14/2025 Time: 20:12 Total Score = 0 1a. Level of Consciousness (LOC) - 0(Alert) 1b. Level of Consciousness (LOC) (Month \T\ Age) - 0(Both) 1c. LOC Commands (Open \T\ Closes Eyes/Open End Spinning Operator) - 0(Both) 2. Best Gaze (Lateral Gaze Paresis) - 0(Normal) 3. Visual Field Loss - 0(No visual loss) 4. Facial Palsy - 0(Normal) 5a. Left Arm: Motor (10-second hold) - 0(No drift) 5b. Right Arm: Motor (10-second hold) - 0(No drift) 6a. Left Leg: Motor (5-second hold - always test supine) - 0(No drift) 6b. Right Leg: Motor (5-second hold - always test supine) - 0(No drift) 7. Limb Ataxia (finger/nose \T\ heel/fernández - test with eyes open) - 0(Absent) 8. Sensory Loss (pinprick arms/legs/face) - 0(Normal) 9. Best Language: Aphasia (description/naming/reading) - 0(No aphasia) 10. Dysarthria (speech clarity - read or repeat words) - 0(Normal) 11. Extinction and Inattention (visual/tactile/auditory/spatial/personal) - 0(No abnormality) Initials: cp Signatures: Dispatcher [employer] EDMS Page, Yang, PA-C PA-C cp Terence, Juwairiyah, RN RN jj7 Mary Hammond gm2 Barbra Azul RN RN kj2 Luz España 3
--- NOTE | 2025-08-15 00:07 | EDPHYS ---
Physician Documentation [facility] Name: Abundio Cruz Age: 80 yrs Sex: Male : 1945 Arrival Date: 08/14/2025 Time: 19:37 Bed 20 Private MD: ED Physician Raj Cisneros HPI: 08/14 20:03 This 80 yrs old Male presents to ER via Ambulatory with complaints of Dizziness. cp 20:03 The patient presents with dizziness, lightheadedness, feeling off balance. Onset: The cp symptoms/episode began/occurred today, about 1400 while at dentist and seated in procedure chair. 20:03 Associated signs and symptoms: Pertinent positives: unsteady gait, Pertinent negatives: cp abdominal pain, blurred vision, chest pain, focal weakness, head injury, near-syncope, syncope. Severity of symptoms: in the emergency department the symptoms have improved mildly. Patient's baseline: Neuro: alert and fully oriented, Motor: no deficits, Ambulation: walks without assistance, Speech: normal. Historical: - Allergies: 20:03 Hydrocodone-Acetaminophen; kj2 - PMHx: 20:03 Atrial Fib; COPD; Diabetes - NIDDM; GERD; High Cholesterol; Hyperlipidemia; kj2 Hypertension; - PSHx: 20:03 Heart ablation; loop recorder-non functional (ab); kj2 - Immunization history:: Adult Immunizations unknown. - Infectious Disease History:: Denies. - Social history:: Smoking status: unknown. ROS: 20:05 Constitutional: Negative for body aches, chills, fever, poor PO intake, cp 20:05 Eyes: Negative for injury, pain, redness, and discharge, cp 20:05 ENT: Negative for drainage from ear(s), ear pain, sore throat, difficulty swallowing, difficulty handling secretions, 20:05 Cardiovascular: Negative for chest pain, edema, palpitations, 20:05 Respiratory: Negative for cough, shortness of breath, wheezing, 20:05 Abdomen/GI: Negative for abdominal pain, vomiting, diarrhea, constipation, 20:05 Skin: Negative for cellulitis, rash, 20:05 Neuro: Positive for dizziness, Negative for altered mental status, headache, syncope, near syncope, weakness, 20:05 All other systems are negative, Exam: 20:10 Constitutional: The patient appears in no acute distress, alert, awake, cp non-diaphoretic, non-toxic, well developed, well nourished, obese, 20:10 Head/Face: Normocephalic, atraumatic. cp 20:10 Eyes: Periorbital structures: appear normal, Pupils: equal, round, and reactive to light and accomodation, Extraocular movements: intact throughout, Conjunctiva: normal, no exudate, no injection, Sclera: no appreciated abnormality, Lids and lashes: appear normal, bilaterally, 20:10 ENT: External ear(s): are unremarkable, Nose: is normal, Mouth: Lips: moist, Oral mucosa: moist, Posterior pharynx: Airway: no evidence of obstruction, patent, swelling, is not appreciated, erythema, is not appreciated, exudate, is not appreciated, 20:10 Neck: ROM/movement: pain, is not appreciated, limited range of motion, is not appreciated, 20:10 Chest/axilla: Inspection: normal, 20:10 Cardiovascular: Rate: normal, Rhythm: regular, Edema: is not appreciated, JVD: is not appreciated, 20:10 Respiratory: the patient does not display signs of respiratory distress, Respirations: normal, no use of accessory muscles, no retractions, labored breathing, is not present, Breath sounds: are clear throughout, no decreased breath sounds, no stridor, no wheezing, 20:10 Abdomen/GI: Inspection: abdomen appears normal, Bowel sounds: normal, in all quadrants, Palpation: abdomen is soft and non-tender, in all quadrants, 20:10 Back: pain, is absent, ROM is normal, 20:10 Skin: cellulitis, is not appreciated, no rash present. 20:10 Neuro: Orientation: to person, place \T\ time. Mentation: is normal, Cerebellar function: Romberg testing is negative, Motor: moves all fours, no focal deficits, Sensation: is normal, 21:12 ECG was reviewed by the Attending Physician. cp Vital Signs: 19:58 BP 131 / 68; Pulse 61; Resp 18; Temp 98.6; Pulse Ox 97% ; Weight 125.19 kg; Height 5 kj2 ft. 7 in. ; 21:00 BP 152 / 61; Pulse 70; Resp 20; Pulse Ox 100% on R/A; kj2 22:00 BP 142 / 59; Pulse 55; Resp 18; Pulse Ox 100% on R/A; kj2 08/15 00:01 BP 158 / 70; Pulse 58; Resp 20; Pulse Ox 100% ; kj2 01:57 BP 157 / 55; Pulse 77; Resp 16; Temp 98.1; Pulse Ox 96% ; jj7 08/14 19:58 Body Mass Index 43.23 (125.19 kg, 170.18 cm) kj2 NIH Stroke Scale Scores: 08/14 20:12 NIHSS Score: 0 cp MDM: 19:53 Medical Screening Exam initiated cp 08/15 00:10 Data reviewed: vital signs, nurses notes, lab test result(s), EKG, radiologic studies, cp CT scan, plain films. 00:10 Differential diagnosis: cardiac arrhythmia, CVA, GI bleed, hypovolemia, TIA. I cp considered the following discharge prescriptions or medication management in the emergency department Medications were administered in the Emergency Department. See MAR. Independent interpretation of the following test(s) in the Emergency Department EKG: See my EKG interpretation above. Test considered but Not performed: MRI: brain. Care significantly affected by the following chronic conditions: Diabetes, Hypertension, Chronic Obstructive Pulmonary Disease. Counseling: I had a detailed discussion with the patient and/or guardian regarding the historical points, exam findings, and any diagnostic results supporting the discharge/admit diagnosis, lab results, radiology results. Response to treatment: the patient's symptoms have mildly improved after treatment, and as a result, I will admit patient. 00:10 Management of patient was discussed with the following: Hospitalist: MR Sierra who will cp admit after discussion. 08/14 20:03 Order name: Basic Metabolic Panel; Complete Time: 21:45 cp 08/14 21:45 Interpretation: Normal except: CL 110; BUN 25; CRE 1.35; GFR 54. cp 08/14 20:03 Order name: CBC with Diff; Complete Time: 21:45 cp 08/14 21:52 Interpretation: Normal except: RBC 4.26; HGB 11.7; HCT 35.7; PLT 150; RDW 18.1; cp EOSINOPHIL % 5.2. 08/14 20:03 Order name: Hepatic Function; Complete Time: 21:45 cp 08/14 21:53 Interpretation: Normal except: AST 46; ALB 3.3; GLOB 4.6; A/G 0.7. cp 08/14 20:03 Order name: High Sensitivity Troponin; Complete Time: 21:45 cp 08/14 21:53 Interpretation: Reviewed. cp 08/14 20:03 Order name: Magnesium; Complete Time: 21:45 cp 08/14 20:03 Order name: Protime (+inr); Complete Time: 21:45 cp 08/14 20:03 Order name: Ptt, Activated; Complete Time: 21:45 cp 08/14 20:03 Order name: UA Rfx Joe Cult if indicated; Complete Time: 21:45 cp 08/14 21:21 Order name: Glucose, Ancillary Testing; Complete Time: 21:45 EDMS 08/14 23:31 Interpretation: Reviewed. cp 08/15 01:05 Order name: Hemoglobin A1c EDMS 08/15 01:05 Order name: Hemoglobin A1c EDMS 08/15 01:13 Order name: CBC with Automated Diff EDMS 08/15 01:13 Order name: CBC with Automated Diff EDMS 08/15 01:13 Order name: CBC with Automated Diff EDMS 08/15 01:13 Order name: Comprehensive Metabolic Panel EDMS 08/15 01:13 Order name: Comprehensive Metabolic Panel EDMS 08/15 01:13 Order name: Comprehensive Metabolic Panel EDMS 08/15 01:13 Order name: Magnesium EDMS 08/15 01:13 Order name: Magnesium EDMS 08/15 01:13 Order name: Magnesium EDMS 08/14 20:03 Order name: CT Head Angio; Complete Time: 00:01 08/14 20:03 Order name: CT Neck Angio; Complete Time: 00:01 08/14 20:03 Order name: Stroke CXR 1 View; Complete Time: 21:45 cp 08/14 21:32 Order name: CT Head Brain wo Cont; Complete Time: 00:01 cp 08/15 01:10 Order name: MRI PLANNING EDMS 08/15 01:10 Order name: MRI PLANNING EDMS 08/14 20:03 Order name: Accucheck; Complete Time: 21:09 cp 08/14 20:03 Order name: Cardiac monitoring; Complete Time: 21:09 cp 08/14 20:03 Order name: EKG - Nurse/Tech; Complete Time: 21:09 cp 08/14 20:03 Order name: IV Saline Lock; Complete Time: 20:57 cp 08/14 20:03 Order name: Labs collected and sent; Complete Time: 20:57 cp 08/14 20:03 Order name: NPO; Complete Time: 21:09 cp 08/14 20:03 Order name: O2 Per Protocol; Complete Time: 20:57 cp 08/14 20:03 Order name: O2 Sat Monitoring; Complete Time: 20:57 cp 08/14 20:03 Order name: Stroke Swallow Screen; Complete Time: 21:10 cp EC/29 21:12 Rate is 59 beats/min. Rhythm is regular. RI interval is normal. QRS interval is normal. cp QT interval is normal. T waves are Inverted in lead aVR. Interpreted by me. Reviewed by me. Administered Medications: 21:09 Drug: Meclizine PO 25 mg PO once Route: PO; kj2 08/15 00:02 Follow up: Response: No adverse reaction kj2 08/14 21:09 Drug: Ondansetron IVP 4 mg IVP once; over 2 minutes Route: IVP; Site: left antecubital; kj2 08/15 00:02 Follow up: Response: No adverse reaction kj2 Disposition: 05:48 Co-signature as Attending Physician, Raj Cisneros MD I agree with the assessment sp4 and plan of care. I reviewed the patient's care provided by Advanced Practice Provider \T\ agree w/ the diagnosis \T\ care plan. I personally saw the pt \T\ performed a substantive portion of the visit, incldng all aspects of the (History/Exam/Medical Decision Making). Disposition Summary: 08/15/25 00:06 Hospitalization Ordered Notes: Hospitalization Status: Observation cp Provider: Carlitos Sierra [facility] cp Condition: Stable cp Problem: new cp Symptoms: have improved cp Bed/Room Type: Standard cp Room Assignment: 220(08/15/25 01:05) kl Diagnosis - Dizziness and giddiness cp Forms: - Medication Reconciliation Form cp - SBAR form cp - Leadership Thank You Letter cp NIH Stroke Scale - NIH Stroke Score Date: 08/14/2025 Time: 20:12 Total Score = 0 1a. Level of Consciousness (LOC) - 0(Alert) 1b. Level of Consciousness (LOC) (Month \T\ Age) - 0(Both) 1c. LOC Commands (Open \T\ Closes Eyes/Oyster Tonger) - 0(Both) 2. Best Gaze (Lateral Gaze Paresis) - 0(Normal) 3. Visual Field Loss - 0(No visual loss) 4. Facial Palsy - 0(Normal) 5a. Left Arm: Motor (10-second hold) - 0(No drift) 5b. Right Arm: Motor (10-second hold) - 0(No drift) 6a. Left Leg: Motor (5-second hold - always test supine) - 0(No drift) 6b. Right Leg: Motor (5-second hold - always test supine) - 0(No drift) 7. Limb Ataxia (finger/nose \T\ heel/fernández - test with eyes open) - 0(Absent) 8. Sensory Loss (pinprick arms/legs/face) - 0(Normal) 9. Best Language: Aphasia (description/naming/reading) - 0(No aphasia) 10. Dysarthria (speech clarity - read or repeat words) - 0(Normal) 11. Extinction and Inattention (visual/tactile/auditory/spatial/personal) - 0(No abnormality) Initials: cp Signatures: Dispatcher [employer] EDMS Citlaly Rogers RN RN kl Yang Jimenes, PA-C PA-C cp Raj Cisneros MD MD sp4 Barbra Azul RN RN kj2 Corrections: (The following items were deleted from the chart) 08/14 20:03 20:03 Neck Angio+CT.RAD.BRZ ordered. EDMS EDMS : 20:03 CT-STROKE BRAIN W/O CONTRAST+CT.RAD.BRZ ordered. EDMS EDMS 20:03 20:03 Chest Single View+RAD.RAD.BRZ ordered. EDMS EDMS 08/15 01:05 00:06 cp francis
--- NOTE | 2025-08-15 01:15 | P.HP ---
Certification for Inpatient Patient admitted to: Observation With expected LOS: <2 Midnights Patient will require the following post-hospital care: None Practitioner: I am a practitioner with admitting privileges, knowledge of patient current condition, hospital course, and medical plan of care. Services: Services provided to patient in accordance with Admission requirements found in Title 42 Section 412.3 of the Code of Federal Regulations Patient History Date of Service: 08/15/25 Reason for admission: Near Syncope- (Dizziness) History of Present Illness: Patient is a pleasant 80-year-old male, with past medical history of essential hypertension, hypercholesteremia, type 2 diabetes mellitus, hyperlipidemia, arthritis, occasional dizziness, who presents to the ER today complaining of profound and worsening dizziness with associated unsteady gait. Patient states he went to see his dentist today, states while he was at the clinic, he had severe dizziness, (near syncope), with no associated chest pain or shortness of breath. Patient states he left the dentist clinic and went home, states while at home his dizziness progressively worsening, and his gait was very unsteady which then prompted him to report to the ER. Patient states he have had previous episodes of dizziness before, last episode 3 months ago, but states his previous dizziness was not as severe like the one he had today. While in the ER, patient received meclizine. Patient work up in the ER BUN 25, creatinine 1.35, GFR 54, UA negative for UTI. Patient had multiple radiographic studies done in ER, and all negative for any acute findings. On admission assessment, patient fully awake, alert and oriented x 3, denies of any chest pain, shortness of breath, headaches, nausea or vomiting, abdominal pain, endorses mild dizziness, but states is much better compared to when he arrived. Patient received meclizine in the ER. Course in ER. (1) CT head, CTA neck, CTA head impression: (A) no acute intracranial abnormalities. Nonspecific white matter change most likely small vessel ischemic disease, age indeterminate. (B) if there is clinical concern for acute ischemia and MRI may be considered. (C) pattern enhancement of the intracranial circulation. (D) partially calcified atheromatous plaque with otherwise patent enhancement of the cervical vasculature with narrowing without stenosis by NASCET. (e) posterioR osseous spurring and disc bulge results in moderate to severe central spinal canal narrowing at C5-6 vertebral level. Allergies hydrocodone Adverse Reaction (Mild, Verified 02/12/14 15:47) UNK Hydrocodone-Acetaminophen Allergy (Uncoded 11/03/14 00:39) Vomiting No Known Kapil Allergy (Uncoded 05/23/16 21:59) Unknown No Known Allergies Allergy (Uncoded 12/15/16 22:39) Unknown Home Medications: Amiodarone HCl [Cordarone*] 100 mg PO DAILY 02/12/14 Amlodipine [Norvasc*] 10 mg PO DAILY 02/12/14 Aspirin Chewable [Aspirin Chewable*] 81 mg PO DAILY 02/12/14 Esomeprazole Mag Trihydrate [Nexium] 40 mg PO BEDTIME 02/12/14 Fenofibrate [Tricor*] 145 mg PO DAILY 02/12/14 Glyburide/Metformin HCl [Glucovance 2.5-500 mg Tablet] 1 tab PO TID 02/12/14 Metoprolol Succinate [Toprol Xl*] 25 mg PO BID 02/12/14 [place]-3 Fatty Acids [Fish Oil] 3,000 mg PO BID 02/12/14 Pioglitazone HCl [Actos] 45 mg PO DAILY 02/12/14 Rivaroxaban [Xarelto*] 20 mg PO 1700 02/12/14 Simvastatin [Zocor*] 80 mg PO BEDTIME 02/12/14 Smz./Tmp. [Bactrim Ds 800 MG/160 MG*] 1 tab PO BID #14 tab 02/14/14 - Past Medical/Surgical History Diabetic: Yes -: DM -: HTN -: AFIB -: hyperlipidemia -: surveillance monitor implant -: neck sx -: ablations - Social History Smoking Status: Never smoker Alcohol use: No CD- Drugs: No Caffeine use: Yes Place of Residence: Home Review of Systems 10-point ROS is otherwise unremarkable General: Other (dizziness, unsteady gait.) Physical Examination - Physical Exam General: Alert, In no apparent distress, Oriented x3, Cooperative HEENT: Atraumatic, Normocephalic, PERRLA, Mucous membr. moist/pink, Sclerae nonicteric Neck: Supple, 2+ carotid pulse no bruit, JVD not distended, No Thyromegaly, No LAD, Without JVD or thyroid abnormality Respiratory: Clear to auscultation bilaterally, Normal air movement Cardiovascular: No edema, Normal pulses, Regular rate/rhythm, Normal S1 S2, Abnormal S3, No gallops, No rubs, No murmurs Capillary refill: <2 Seconds Gastrointestinal: Normal bowel sounds, Soft and benign, Non-distended, W/out hepatomegaly, W/out splenomegaly, No ascites, No tenderness, No masses, No rebound, No guarding Musculoskeletal: No clubbing, No swelling, No contractures, No erythema, No tenderness, No warmth Integumentary: No rashes, No breakdown, No significant lesion, No tenderness/swelling, No erythema, No warmth, No cyanosis Neurological: Normal gait, Normal speech, Normal strength at 5/5 x4 extr, Normal tone, Sensation intact, Cranial nerves 3-12 intact, Normal reflexes 2+, Normal affect Lymphatics: No axilla or inguinal lymphadenopathy - Studies Laboratory Data (last 24 hrs) 08/14/25 08/14/25 08/14/25 20:54 20:54 20:54 WBC 6.40 Hgb 11.7 L Hct 35.7 L Plt Count 150 L PT 13.5 H INR 1.20 APTT 27.4 Sodium 141 Potassium 4.3 BUN 25 H Creatinine 1.35 H Glucose 101 Magnesium 1.7 Total Bilirubin 0.5 AST 46 H ALT 38 Alkaline Phosphatase 54 Male Exam - Male Exam Inguinal exam: No hernias Assessment and Plan - Plan Patient is a 80 years old male reports to ER complaining of progressively worsening dizziness with associated unsteady gait. Patient is admitted to observation with diagnosis of near syncope, unsteady gait. Assessment/ Plan. (1)Near syncope (dizziness), unsteady gait secondary to dizziness. Patient had multiple radiographic studies done in ER, impressions all negative for any acute findings. -Meclizine 25 mg p.o. Q6 as as needed -Order MRI head with contrast. -Consult physical therapy. - Telemetry monitoring. (2)Chronic atrial fibrillation. -Continue on Xarelto 20 mg p.o. daily. (3)Chronic hypercholesteremia. -Continue on simvastatin 80 mg p.o. at bedtime (4)Chronic hyperlipidemia. -Continue on fenofibrate 145 mg p.o. daily. (5) chronic essential hypertension. -Continue amlodipine 10 mg daily. -Continue metoprolol 25 mg p.o. twice daily. (6) chronic type 2 diabetes mellitus. -Order A1c to evaluate patient current diabetic status. -Continue Actos 45 milligram p.o. daily. -ACHS with moderate sliding scale coverage. -Order for daily night snack. (7)Explained the entire treatment plan to the patient, solicited questions answered and voiced understanding. Discharge Plan: Home Plan to discharge in: 48 Hours - Advance Directives Does patient have a Living Will: No Does patient have a Durable POA for Healthcare: No - Code Status/Comfort Care Code Status Assessed: Yes Code Status: Full Code Critical Care: No Time Spent Managing Pts Care (In Minutes): 55
[2025-08-15] MEDS: Ringers Lactate 1,000 ML IV SCH (02:44)
[2025-08-15 03:02] VITALS: BMI 42.9
[2025-08-15 03:25] VITALS: O2SAT 94
[2025-08-15] MEDS ORDERED: MECLIZINE HCL 12.5 MG TAB PO PRN (03:49)
[2025-08-15] MEDS: METOPROLOL TAR 25 MG TAB PO SCH (06:00)
[2025-08-15] MEDS: INSULIN REGULAR (HUMAN) 100 UNIT/ML SQ SCH (07:30)
[2025-08-15] MEDS ORDERED: HEPARIN 5000 UNIT/ML 1 ML VIAL SQ SCH (09:00)
[2025-08-15] MEDS: FENOFIBRATE 145 MG TAB PO SCH (09:00)
[2025-08-15] MEDS: PIOGLITAZONE 15 MG TAB PO SCH (10:15)
[2025-08-15] MEDS: HYDRALAZINE HCL 25 MG TABLET PO SCH (10:16)
[2025-08-15] MEDS: CETIRIZINE HCL 5 MG TABLET PO SCH (10:16)
[2025-08-15] MEDS: AMLODIPINE 10 MG TAB PO SCH (10:17)
[2025-08-15] MEDS: FENOFIBRATE 160 MG TAB PO SCH (10:17)
[2025-08-15] MEDS: LEVOTHYROXINE SOD 0.075 MG TAB PO SCH (10:17)
[2025-08-15] MEDS: EZETIMIBE 10 MG TAB PO SCH (10:17)
[2025-08-15] MEDS: PANTOPRAZOLE 40MG TABLET PO SCH (10:17)
[2025-08-15] MEDS: HEPARIN 5000 UNIT/ML 1 ML VIAL SQ SCH (10:17)
[2025-08-15] MEDS: METOPROLOL XL 100 MG TAB PO SCH (10:17)
[2025-08-15] MEDS: MAGNESIUM SULFATE 1 gm IVPB 1 GM/100 ML BAG IV ONE (10:18)
--- NOTE | 2025-08-15 15:22 | RAD REPORT ---
EXAMINATION: MRI BRAIN WITHOUT CONTRAST CLINICAL INDICATION: Near Syncope TECHNIQUE: Multiplanar multisequence MR images of the brain were obtained without intravenous contras t. Unless otherwise specified, incidental findings do not require dedicated imaging follow-up. COMPARISON: No prior exam. FINDINGS: INTRACRANIAL: Diffusion-weighted images show no acute or early subacute infarction. There is moderate brain atrophy with moderate T2/FLAIR hyperintensities in the periventricular and deep white matter regions, likely representing chronic microvascular ischemic changes. There is no mass effect or midli ne shift. No abnormal extraaxial fluid collection. VASCULATURE: Normal signal voids in the larger intracranial arteries and dural venous sinuses. SINUSES: Sphenoid sinus opacification. BONE: The marrow signal pattern is within normal limits. IMPRESSION: Negative for acute CVA or other acute intracranial finding.
[2025-08-15] MEDS ORDERED: RIVAROXABAN 10 MG TABLET PO SCH (17:00)
[2025-08-15 17:45] VITALS: BP 148/67; TEMP 97.9
[2025-08-15] MEDS ORDERED: ASPIRIN 81 MG CHEWABLE TABLET PO SCH (21:00)
[2025-08-15] MEDS ORDERED: ATORVASTATIN 80 MG TAB PO SCH (21:00)
[2025-08-15] MEDS ORDERED: ATORVASTATIN 40 MG TAB PO SCH (21:00)
[2025-08-16] MEDS ORDERED: VALSARTAN 160 MG TAB PO SCH (09:19)
--- NOTE | 2025-08-16 19:46 | P.DS ---
Admission Date: 08/15/25 Discharge Date: 08/15/25 Disposition: ROUTINE DISCHARGE Discharge Condition: GOOD Reason for Admission: Near Syncope- (Dizziness) Brief History of Present Illness: 80-year-old male, with past medical history of essential hypertension, hypercholesteremia, type 2 diabetes mellitus, hyperlipidemia, arthritis, occasional dizziness, presented to the ER today complaining of dizziness with associated unsteady gait. Patient states he went to see his dentist today, states while he was at the clinic, he had severe dizziness. Patient states he left the dentist clinic and went home, states while at home his dizziness progressively worsening, and his gait was very unsteady which then prompted him to report to the ER. Patient states he have had previous episodes of dizziness before, last episode 3 months ago. Patient work up in the ER BUN 25, creatinine 1.35, GFR 54, UA negative for UTI. Patient had multiple radiographic studies done in ER, and all negative for any acute findings. Patient was hospitalized for further management. Images done in the emergency department included: CT head, CTA neck, CTA head impression: (A) no acute intracranial abnormalities. Nonspecific white matter change most likely small vessel ischemic disease, age indeterminate. (B) if there is clinical concern for acute ischemia and MRI may be considered. (C) pattern enhancement of the intracranial circulation. (D) partially calcified atheromatous plaque with otherwise patent enhancement of the cervical vasculature with narrowing without stenosis by NASCET. (e) posterioR osseous spurring and disc bulge results in moderate to severe central spinal canal narrowing at C5-6 vertebral level. Hospital Course: Diagnosis Dizziness secondary to benign positional vertigo Hypertensive urgency Chronic atrial fibrillation Type 2 diabetes Patient placed on observation on the medical floor. No arrhythmias noted. MRI of the brain was done with did not show any acute disease. Patient blood pressure was severely elevated however blood pressure improved with his home antihypertensives during the hospital stay. Patient reported vertigo related to his posture and head movements. Patient symptoms correlated with benign positional vertigo. He was seen and evaluated by physical therapy, patient was taught the Harris maneuver. His symptoms have improved, vitals are stable, patient is ambulatory with normal gait. Acute intracranial disease ruled out. Patient was complaining of left ear discharge. He is discharged and informed to follow-up with the ENT for comprehensive ear examination. Vital Signs/Physical Exam: Temp Pulse Resp BP Pulse Ox 97.9 F 56 20 148/67 H 93 10/30/25 16:00 08/15/25 16:00 08/15/25 16:00 08/15/25 16:00 08/15/25 16:00 General: Alert, In no apparent distress, Oriented x3 HEENT: Atraumatic, Mucous membr. moist/pink, EOMI, Sclerae nonicteric Neck: Supple, JVD not distended Respiratory: Clear to auscultation bilaterally, Normal air movement Cardiovascular: No edema, Normal S1 S2, Irregular heart rate/rhythm Gastrointestinal: Normal bowel sounds, Soft and benign, Non-distended, No tenderness Musculoskeletal: No swelling Integumentary: No rashes, No cyanosis Neurological: Normal speech, Normal strength at 5/5 x4 extr, Cranial nerves 3-12 intact Laboratory Data at Discharge: WBC 6.40 thou/uL (4.3-10.9) 08/14/25 20:54 Hgb 11.7 g/dL (13.6-17.9) L 08/14/25 20:54 Hct 35.7 % (39.6-49.0) L 08/14/25 20:54 Plt Count 150 thou/uL (152-406) L 08/14/25 20:54 PT 13.5 SECONDS (10-13.0) H 08/14/25 20:54 INR 1.20 08/14/25 20:54 APTT 27.4 SECONDS (27.2-37.4) 08/14/25 20:54 Sodium 141 mEq/L (136-145) 08/14/25 20:54 Potassium 4.3 mEq/L (3.5-5.1) 08/14/25 20:54 BUN 25 mg/dL (7-18) H 08/14/25 20:54 Creatinine 1.35 mg/dL (0.70-1.30) H 08/14/25 20:54 Glucose 101 mg/dL (74-106) 08/14/25 20:54 Magnesium 1.7 mg/dL (1.6-2.4) 08/15/25 05:01 Total Bilirubin 0.5 mg/dL (0.2-1.0) 08/14/25 20:54 AST 46 U/L (15-37) H 08/14/25 20:54 ALT 38 U/L (16-61) 08/14/25 20:54 Alkaline Phosphatase 54 U/L (45-117) 08/14/25 20:54 Home Medications: Aspirin Chewable [Aspirin Chewable*] 81 mg PO BEDTIME 02/12/14 Esomeprazole Mag Trihydrate [Nexium] 40 mg PO DAILY 02/12/14 Fenofibrate [Tricor*] 200 mg PO DAILY 02/12/14 Metoprolol Succinate [Toprol Xl*] 100 mg PO DAILY 02/12/14 Amlodipine Besylate/Valsartan [Amlodipine-Valsartan 10-320 mg] 1 tab PO DAILY 08/15/25 Atorvastatin Calcium [Lipitor] 1 tab PO DAILY 08/15/25 Cetirizine HCl [All Day Allergy Relief] 1 tab PO DAILY 08/15/25 Ezetimibe [Zetia*] 1 tab PO DAILY 08/15/25 Hydralazine HCl [Apresoline] 1 tab PO BID 08/15/25 Insulin Aspart Prot/Insuln Asp [Novolog Mix 70-30 Flexpen] See Protocol SQ [facility] 08/15/25 Levothyroxine [Synthroid*] 1 tab PO DAILY 08/15/25 icosapent ethyL [Vascepa] 2 gm PO BID 08/15/25 Followup: Citlali Stauffer DO [ACTIVE - CAN ADMIT] - KAROL ROBERSON [Primary Care Provider] - Time spent managing pt's care (in minutes): 33
== END 2025-08-15 18:45 | disposition home or self-care (01) ==
LOC: ER 19:37 → 2ND 08-15 00:58
PROVIDERS: ADMIT Internal Medicine; ATTEND Internal Medicine
DX: R55 Syncope and collapse (principal); I10 Essential (primary) hypertension; E78.00 Pure hypercholesterolemia, unspecified; E11.9 Type 2 diabetes mellitus without complications; E78.5 Hyperlipidemia, unspecified; M19.90 Unspecified osteoarthritis, unspecified site; R42 Dizziness and giddiness; R26.81 Unsteadiness on feet; Z88.5 Allergy status to narcotic agent; I48.11 Longstanding persistent atrial fibrillation; Z79.01 Long term (current) use of anticoagulants; J44.9 Chronic obstructive pulmonary disease, unspecified
CPT/HCPCS: 36415; 70450; 70496; 70498; 70551; 71045; 80048; 80076; 81001; 82947; 83036; 83735; 84484; 85025; 85610; 85730; 93005; 97110; 97161; G0378; J1644; J2405; J3475; J7120; J8597; Q9967